=== PATIENT | female | born 1950 | race Caucasian/White ===

== ENCOUNTER → 2018-04-22 11:10 | Outpatient (CLI) | payer MEDICARE, OTHER, SELFPAY ==
--- NOTE | 2018-04-22 11:26 | XR_ITS ---
XR chest 2V HISTORY: Cough and congestion ITS.REASON: PNEUMONIA ORDERING PHYSICIAN: Shy Augustin MD PATIENT AGE: 67 years COMPARISON: None FINDINGS: There is a 2.9 x 2.5 cm ill-defined nodule within the right apex. Along the inferior margin of this nodule is some increased linear density. The remaining lungs are clear. Unremarkable cardiovascular structures. No acute bony anomalies. IMPRESSION: 2.9 cm right upper lobe nodule suspicious for malignancy. There is inferior linear density associated with this nodule which may related to inferior extension. Chest CT with contrast recommended for further evaluation
== END ==
PROVIDERS: PCP Family Medicine; Visit Provider Family Medicine
DX: J18.1 Lobar pneumonia, unspecified organism (principal)
CPT/HCPCS: 71046

== ENCOUNTER → 2018-04-28 12:46 | Outpatient (CLI) | payer MEDICARE, OTHER, SELFPAY ==
[2018-04-28 13:11] LABS: Blood Urea Nitrogen 16 mg/dL (7-18); Creatinine,Serum 0.83 mg/dL (0.55-1.02); Estimated Glomerular Filt Rate 69 ml/min (>60); GFR (African American) 83 ML/MIN (>60)
--- NOTE | 2018-04-28 13:31 | CT_ITS ---
CT chest wo/w con HISTORY: Right lung mass, cough and congestion ITS.REASON: RT LUNG NODULE ORDERING PHYSICIAN: Abdiaziz Drake MD PATIENT AGE: 67 years COMPARISON: 04/22/2018 Technique: Axial images obtained with sagittal and coronal reformats. All CT scans at the facility use one or more dose reduction, viz: automated exposure control, ma/kV adjustment per patient size (including targeted exams where dose is matched to indication, i.e. head), or iterative reconstruction technique. FINDINGS: No mediastinal or hilar mass or adenopathy is evident. Normal heart size. No evidence of pericardial effusion. The right lobe of the thyroid gland is somewhat enlarged posteriorly and medially There is a 2.4 x 2.7 x 2.6 cm right upper lobe mass. This is in the right apex anteriorly with extension to the chest wall. This is noncalcified. There are some peripheral air bronchograms adjacent to this lesion. This corresponds to the abnormality noted on the radiograph. Linear density extends from the superior hilum to this region. This is suspicious for neoplasm with some surrounding postobstructive changes. There is no underlying rib destruction. Remaining lungs are clear. No effusions. There is a 9 mm nodular density within the medial aspect of the right breast. Mammography suggested for further evaluation. No bony destructive process evident. Upper abdominal images are unremarkable. IMPRESSION: 2.7 cm right upper lobe mass suspicious for neoplasm. There are some surrounding inflammatory changes adjacent to this lesion with some air bronchograms. Dense consolidation within the included in the differential diagnosis. This is not amenable to percutaneous biopsy due to the location and overlying osseous structures. Bronchoscopy is suggested for further evaluation.
--- NOTE | 2018-04-28 13:55 | HMH.ITSHM ---
prednisone dulers benadryl guafensin/codine
== END ==
PROVIDERS: PCP Family Medicine; Visit Provider Family Medicine
DX: R91.1 Solitary pulmonary nodule (principal)
CPT/HCPCS: 36415; 71270; 82565; 84520; Q9967

== ENCOUNTER 2022-06-08 11:10 | Emergency (ER) | payer MEDICARE, BC, SELFPAY ==
[2022-06-08] VITALS (12 sets, daily range): BP systolic 106–144; BP diastolic 43–76; PULSE 138–163; RESP 24–32; TEMP 36.4–36.7; O2SAT 71–100; BMI 24.1
--- NOTE | 2022-06-08 11:34 | XR_ITS ---
PROCEDURE INFORMATION: Exam: XR Chest Exam date and time: 06/08/2022 12:39 PM Age: 72 years old Clinical indication: Shortness of breath; Additional info: SOA TECHNIQUE: Imaging protocol: Radiologic exam of the chest. Views: 1 view. COMPARISON: CHESTWW CT chest wo/w con 04/28/2018 1:38 PM FINDINGS: Lungs: Postsurgical changes of the right lung. There is right middle lobe atelectasis. Pleural spaces: Right pleural thickening. No pneumothorax. Heart/Mediastinum: Unremarkable. No cardiomegaly. Bones/joints: Unremarkable. IMPRESSION: Postsurgical changes of the right lung. There is right middle lobe atelectasis.
--- NOTE | 2022-06-08 11:37 | PC.NURSE ---
SUSHILA WHITE at
--- NOTE | 2022-06-08 11:40 | CT_ITS ---
PROCEDURE INFORMATION: Exam: CTA Chest With Contrast Exam date and time: 06/08/2022 1:15 PM Age: 72 years old Clinical indication: Shortness of breath and tachypnea; Additional info: huber ZAMARRIPA, h/o lung cancer TECHNIQUE: Imaging protocol: Computed tomographic angiography of the chest with contrast. 3D rendering (Not supervised by radiologist): MIP and/or 3D reconstructed images were created by the technologist. Radiation optimization: All CT scans at this facility use at least one of these dose optimization techniques: automated exposure control; mA and/or kV adjustment per patient size (includes targeted exams where dose is matched to clinical indication); or iterative reconstruction. Contrast material: ISOVUE; Contrast volume: 70 ml; Contrast route: INTRAVENOUS (IV); COMPARISON: CHESTWW CT chest wo/w con 04/28/2018 1:38 PM FINDINGS: Pulmonary arteries: Positive for pulmonary embolism involving the left main pulmonary artery with small saddle component extending into the proximal right main pulmonary artery. Pulmonary emboli are also seen extending into the left upper and lower lobar pulmonary arteries and segmental branches. Aorta: Unremarkable. No aortic aneurysm. No aortic dissection. Lungs: Postsurgical changes in the right lung. There is complete atelectasis of the right middle lobe. Calcified right lower lobe granuloma. Pleural spaces: Unremarkable. No pneumothorax. No pleural effusion. Heart: Mild cardiomegaly. Heart RV/LV ratio: The RV to LV ratio is mildly elevated at 1.1. Lymph nodes: Unremarkable. No enlarged lymph nodes. Gallbladder and bile ducts: Cholecystectomy. Bones/joints: Unremarkable. No acute fracture. Soft tissues: Unremarkable. IMPRESSION: 1. Positive for pulmonary embolism involving the left main pulmonary artery with small saddle component extending into the proximal right main pulmonary artery. Pulmonary emboli are also seen extending into the left upper and lower lobar pulmonary arteries and segmental branches. 2. Complete atelectasis of the right middle lobe. THIS REPORT CONTAINS FINDINGS THAT MAY BE CRITICAL TO PATIENT CARE. The findings were verbally communicated via telephone conference with Cassia Rios at 12:40 PM EST on 06/08/2022. The findings were acknowledged and understood.
[2022-06-08 11:51] LABS: Basophils # 0.1 K/mm3 (0-0.2); Basophils % 0.4 % (0.1-2.0); Eosinophils % 0.1 % (0.1-12.0); Hematocrit 37.1 % (37.0-47.0); Hemoglobin 11.4 g/dL (12.2-16.2); Lymphocytes # 1.5 K/mm3 (0.7-4.5); Lymphocytes % 11.3 % (10-50); Mean Corpuscular HGB Conc 30.8 g/dL (31.8-35.4); Mean Corpuscular Hemoglobin 30.4 pg (27.0-31.2); Mean Corpuscular Volume 98.6 fl (81-99); Mean Platelet Volume 9.1 fl (7.4-10.4); Monocytes # 0.7 K/mm3 (0.1-1.0); Monocytes % 5.2 % (1.7-9.3); Neutrophils # 11.3 K/mm3 (1.8-7.8); Neutrophils % 83.1 % (37.0-80.0); Platelet Count 280 K/mm3 (142-424); Red Blood Count 3.76 M/mm3 (4.20-5.40); Red Cell Distribution Width 14.4 % (11.5-17.5); White Blood Count 13.6 K/mm3 (4.8-10.8)
--- NOTE | 2022-06-08 11:51 | ECG_ITS ---
APPROVED REPORT Exam: Resting ECG HR:145 bpm ECG Measurements Heart Rate 145 AXES SC 146 P 50 QRSd 63 QRS -58 QT 281 T 43 QTc 365 Conclusion SINUS TACHYCARDIA, POSSIBLE ATRIAL FLUTTER INFERIOR MYOCARDIAL INFARCTION , PROBABLY OLD [40+ ms Q WAVE AND/OR ST/T ABNORMALITY IN II/aVF] ANTEROLATERAL MYOCARDIAL INFARCTION , PROBABLY OLD [40+ ms Q WAVE IN I/aVL/V3-V6] ABNORMAL ECG UNCONFIRMED REPORT Electronically signed by : Abdiaziz Diana MD 06/08/2022 17:12:18
[2022-06-08 11:55] LABS: Anion Gap 25.4 mEq/L (5-15); Blood Urea Nitrogen 23 mg/dl (7-17); Carbon Dioxide 19 mmol/L (22.0-30.0); Chloride 98 mmol/L (98-107); Creatinine Clearance Estimated 27 mL/min (50-200); Estimated Glomerular Filt Rate 28 ml/min (>60); GFR (African American) 34 ML/MIN (>60); Glucose 170 mg/dl (74-100); Potassium 4.4 mmoL/L (3.5-5.1); Sodium 138 mmol/L (136-145)
[2022-06-08 11:56] LABS: Lactic Acid 3.3 mmol/L (0.7-2.1)
[2022-06-08 12:04] LABS: NT Pro Brain Natriuretic Pep. 495 pg/mL (0-125)
[2022-06-08 12:08] LABS: Troponin I 2.05 ng/ml (0.00-0.034)
--- NOTE | 2022-06-08 12:16 | PC.NURSE ---
pt to ct
--- NOTE | 2022-06-08 12:18 | HMH.EDGENADL ---
Discharge Plan Disposition Patient Disposition: Xfer Short-Term Hosp Condition: Fair Prescriptions Prescriptions: No Action Tagrisso 80 mg tablet 80 mg PO DAILY Referrals Follow up/Referrals: Celina Cole APRN [Primary Care Provider] - See instructions Clinical Impressions Clinical Impression: Acute saddle pulmonary embolism, Acute hypoxemic respiratory failure, Elevated troponin I level Stand Alone Forms Stand Alone Forms: Transfer Record - ED Discharge ED Provider: Cassia Rios General Adult HPI General Chief complaint: Shortness of Breath/Dyspnea Stated complaint: SOA Time Seen by Provider: 06/08/22 11:39 Mode of Arrival: Wheelchair Source of Information: Patient Limitations: No Limitations Description of Symptoms (Recalled from ER Triage Doc. by RN): Pt reports SOA x2 days, worsening today. Pt reports has had cough, fever at home intermittent x2 days. Rapid respirations noted, cyanotic nail bed upon arrival. SaO2 71% on RA upon arrival. Pt reports hx of lung CA, hx of R lung resection in 2018. Pt reports is on a daily chemo pill since 2020 History of Present Illness HPI narrative: This patient is a 72-year-old female with a history of lung cancer on chemotherapy presented to the emergency department for evaluation of shortness of breath. This is been worsening over the last 2 days. She has a history of lung resection in 2018. She states that she has had increasing cough, dyspnea on exertion, and very poor oral intake over the last several days. She said chills, but no true fevers. She also had nausea with an episode of emesis this morning. She is had no abdominal pain or changes in bowel movements. Nothing seems to make her symptoms better or worse. No history of blood clots, no recent lower extremity swelling. Patient arrives in respiratory distress, so most of the history is obtained from her . Related Data Home Medications Medication Instructions Recorded Confirmed osimertinib 80 mg tablet (Tagrisso) 80 mg PO DAILY chemotherapy 06/08/22 06/08/22 Allergies Allergy/AdvReac Type Severity Reaction Status Date / Time Penicillins Allergy Unknown Verified 06/08/22 12:40 allergy reaction Sulfa (Sulfonamide Allergy Unknown Verified 06/08/22 12:40 Antibiotics) allergy reaction PFSH PFSH Social History Smoking Status: Unknown if ever smoked alcohol intake: never current occupational status: unemployed and retired Travel in the last 8 weeks: None ROS Obtained: Yes All systems reviewed & no additional complaints except as documented 14 point review of systems obtained and negative except as mentioned in HPI. Physical Exam General General appearance: alert and in distress (In respiratory distress) Head Head exam: atraumatic and normocephalic Eye Eye exam: Present normal appearance, PERRL and EOMI ENT ENT exam: Present mucous membranes dry Neck Neck exam: Present normal inspection, full ROM and trachea midline Chest Chest inspection: Present normal inspection and symmetric chest wall rise; Absent tenderness Respiratory Respiratory exam: Present respiratory distress, wheezes, accessory muscle use and other (Tachypneic with retractions and accessory muscle use. Diffuse wheezes and rhonchi.) Cardiovascular Cardiovascular exam: Present normal rhythm and tachycardia Abdominal Exam Abdominal exam: Present soft; Absent distention, tenderness or guarding Back Exam Back exam: Present normal inspection and full ROM Neurological Exam Neurological exam: Present alert, oriented X3 and CN II-XII intact; Absent motor sensory deficit Psychiatric Psychiatric exam: Present normal affect Skin Skin exam: Present warm and dry Medical Decision Making Medical Records Medical records reviewed: Yes I reviewed the patient's medical records. Marcus Inquiry Pt receiving controlled substance: No Vital Signs:
--- NOTE | 2022-06-08 12:33 | PC.NURSE ---
pt return from CT
--- NOTE | 2022-06-08 12:38 | PC.NURSE ---
DR CARLISLE SPEAKING WITH HAYESAD
--- NOTE | 2022-06-08 12:39 | PC.NURSE ---
DR CARLISLE SPEAKING WITH DR HOGAN
--- NOTE | 2022-06-08 12:40 | PC.NURSE ---
pt on O2 @ 5L per NC at this time
--- NOTE | 2022-06-08 12:40 | PC.NURSE ---
Dr florence strange MD speaking with him.
--- NOTE | 2022-06-08 12:43 | PC.NURSE ---
SUSHILA WHITE at discussing POC and test results for pt at this time
--- NOTE | 2022-06-08 12:48 | PC.NURSE ---
ER speaking with pharmacy regarding tPA
--- NOTE | 2022-06-08 12:48 | PC.NURSE ---
notified RT of ER MD requesting pt be placed on vapo therm
--- NOTE | 2022-06-08 12:50 | PC.NURSE ---
Addendum entered by Radha Singh RN 06/08/22 13:06: hospitalist declined admission Original Note: ER MD speaking with hospitalist.
[2022-06-08 13:01] LABS: Activated Partial Thrombo Time 31.9 seconds (22.8-30.6); INR 1.04 (0.9-1.1); Prothrombin Time 11.2 seconds (10.1-12.5)
--- NOTE | 2022-06-08 13:06 | PC.NURSE ---
ER spoke with ana in pharmacy r/t tPA dosing again after researching dose. Dr. Strickland had recommended 100mg of tPA. After speaking with Ana in pharmacy ER states dosing is 100 mg of tPA IV infusion over 2 hours. ER states was changing order in computer.
--- NOTE | 2022-06-08 13:17 | PC.NURSE ---
Placed call to [facility] for transfer, images powershared and waiting for them to see them and call back.
--- NOTE | 2022-06-08 13:20 | PC.NURSE ---
pt requests [facility], declined per pt
--- NOTE | 2022-06-08 13:21 | PC.NURSE ---
Dr Rios speaking with [facility]
--- NOTE | 2022-06-08 13:24 | PC.NURSE ---
speaking with [facility] for transfer for ICU bed
[2022-06-08 13:28] LABS: Influenza A, PCR Not Detected (NotDetected); Influenza B, PCR Not Detected (NotDetected)
--- NOTE | 2022-06-08 13:29 | PC.NURSE ---
at going over consent form for tPA with pt and pts , pt stated had questions. Notified ER MD SUSHILA WHITE at at this time
--- NOTE | 2022-06-08 13:40 | PC.NURSE ---
caroline at [facility] dept called requesting face sheet on pt, reports will be calling back soon with bed assignment
--- NOTE | 2022-06-08 13:47 | PC.NURSE ---
Dr Rios spoke with Dr Britt, accepting pt to ICU, calling status of helicopter
[2022-06-08 13:50] LABS: Coronavirus 19, PCR Detected (NotDetected)
--- NOTE | 2022-06-08 13:54 | PC.NURSE ---
[facility] HAS ACCEPTED THE FLIGHT WILL BE HERE IN APPROX 35 MIN
--- NOTE | 2022-06-08 13:59 | PC.NURSE ---
1336- vapotherm increased to 60% on 20L per RT per ER MD request r/t SaO2 88%
--- NOTE | 2022-06-08 13:59 | PC.NURSE ---
CB advised of pt covid positive results and they advised, that was fine and she would be in the right dept for it.
--- NOTE | 2022-06-08 14:04 | PC.NURSE ---
checked on pt at this time, pt sitting up in bed talking with her . States no needs at this time, UPdated pt we are waiting on bed assignment from [facility].
--- NOTE | 2022-06-08 14:16 | PC.NURSE ---
[facility] HAS HAD TO DECLINE FOR [facility] , THEY CALLED [facility] THEY HAD TO DECLINE TO
--- NOTE | 2022-06-08 14:21 | PC.NURSE ---
report called to ELDA Earl at [facility] at this time. [facility] pt is assigned to [address] for EMS to go to the [place] upon arrival. [facility] notified of need for transport as [facility] declined.
[2022-06-08 14:42] LABS: Microscopic, Urine URINE MICROSCOPIC (MICROSCOPIC)
--- NOTE | 2022-06-08 15:15 | PC.NURSE ---
report given to [facility] staff at [facility]
--- NOTE | 2022-06-08 15:40 | PC.NURSE ---
notified caroline in acc at [facility] pt is in route with ems
[2022-06-08 15:44] LABS: Reflex Lactic Add Lactic Reflex
[2022-06-08 15:59] LABS: Appearance,Urine CLEAR (Clear); Bilirubin,Urine Negative (Negative); Blood, Urine TRACE-I (Negative); Color,Urine YELLOW (Yellow); Glucose,Urine (UA) Negative (Negative); Ketones,Urine Negative (Negative); Leukocyte Esterase,Urine Negative (Negative); Nitrate,Urine Negative (Negative); PH,Urine 5.5 (5.0-8.5); Protein,Urine 1+ (Negative); Urobilinogen,Urine 0.2 EU/dl (0.2)
[2022-06-08 16:19] LABS: RBC,Urine Occasional #/hpf (0-3); WBC,Urine Occasional #/hpf (0-3)
[2022-06-08 16:20] LABS: Bacteria,Urine Trace /lpf
== END 2022-06-08 15:15 | disposition short-term general hospital (02) ==
PROVIDERS: Emergency Provider Emergency Medicine; PCP Nurse Practitioner
DX: U07.1 COVID-19 (principal); J96.01 Acute respiratory failure with hypoxia; I26.92 Saddle embolus of pulmonary artery without acute cor pulmonale; R77.8 Other specified abnormalities of plasma proteins; Z88.0 Allergy status to penicillin; Z88.2 Allergy status to sulfonamides
CPT/HCPCS: 51702; 71045; 71275; 80048; 81001; 83605; 83880; 84484; 85025; 85610; 85730; 87040; 93005; 96365; 96366; 96367; 99291; C9803; J2997; Q9967; U0003; U0005

== ENCOUNTER → 2022-06-30 12:04 | Outpatient (CLI) | payer MEDICARE, BC, SELFPAY ==
[2022-06-30 12:44] LABS: Basophils % 0.6 % (0.1-2.0); Eosinophils # 0.1 K/mm3 (0.0-0.4); Eosinophils % 1.5 % (0.1-12.0); Hematocrit 34.1 % (37.0-47.0); Hemoglobin 10.7 g/dL (12.2-16.2); Lymphocytes # 0.9 K/mm3 (0.7-4.5); Mean Corpuscular HGB Conc 31.4 g/dL (31.8-35.4); Mean Corpuscular Hemoglobin 30.2 pg (27.0-31.2); Mean Corpuscular Volume 96.1 fl (81-99); Mean Platelet Volume 8.4 fl (7.4-10.4); Monocytes # 0.2 K/mm3 (0.1-1.0); Monocytes % 4.8 % (1.7-9.3); Neutrophils # 2.5 K/mm3 (1.8-7.8); Neutrophils % 69.1 % (37.0-80.0); Platelet Count 376 K/mm3 (142-424); Red Blood Count 3.55 M/mm3 (4.20-5.40); Red Cell Distribution Width 14.9 % (11.5-17.5); White Blood Count 3.6 K/mm3 (4.8-10.8)
[2022-06-30 12:49] LABS: D-Dimer 0.77 ug/mL (0.0-0.5)
[2022-06-30 14:16] LABS: Alanine Aminotransferase 13 U/L (12-78); Albumin Level 4.3 g/dl (3.5-5.0); Albumin/Globulin Ratio 1.9 (1.1-1.8); Alkaline Phosphatase 89 U/L (38-126); Aspartate Amino Transferase 22 U/L (14-36); Bilirubin,Total 0.4 mg/dl (0.2-1.3); Blood Urea Nitrogen 16 mg/dl (7-17); Carbon Dioxide 19 mmol/L (22.0-30.0); Estimated Glomerular Filt Rate 30 ml/min (>60); GFR (African American) 36 ML/MIN (>60); Globulin 2.3 g/dL (1.3-3.2); Glucose 95 mg/dl (74-100); Potassium 3.7 mmoL/L (3.5-5.1); Sodium 134 mmol/L (136-145); Total Protein,Serum 6.6 g/dl (6.3-8.2)
[2022-06-30 15:06] LABS: Anion Gap 13.7 mEq/L (5-15); Chloride 105 mmol/L (98-107)
== END ==
PROVIDERS: PCP Internal Medicine Hematology & Oncology; Visit Provider Internal Medicine Pulmonary Disease
DX: J45.909 Unspecified asthma, uncomplicated (principal); J84.9 Interstitial pulmonary disease, unspecified
CPT/HCPCS: 36415; 80053; 85025; 85378

== ENCOUNTER → 2022-08-28 09:47 | Outpatient (CLI) | payer MEDICARE, BC, SELFPAY ==
[2022-08-28 10:40] VITALS: PULSE 78; PULSE 86
== END ==
PROVIDERS: PCP Internal Medicine Hematology & Oncology; Visit Provider Internal Medicine Pulmonary Disease
DX: R06.02 Shortness of breath (principal)
CPT/HCPCS: 94060; 94618; 94640; 94727; 94729

== ENCOUNTER → 2022-11-13 12:29 | Outpatient (CLI) | payer MEDICARE, BC, SELFPAY ==
--- NOTE | 2022-11-13 12:44 | XR_ITS ---
FINAL REPORT CLINICAL HISTORY: RT KNEE PAIN,EFFUSION FINDINGS: Right knee Three views were obtained. There is no acute fracture or dislocation. There are moderate and severe degenerative changes. Moderate joint effusion is identified. The bones are osteopenic. IMPRESSION: Degenerative changes as above with moderate joint effusion. Reviewed, Interpreted and Dictated by Danish Solomon III, MD Transcribed by Tami Haley Authenticated and [facility]
== END ==
PROVIDERS: PCP Nurse Practitioner Family; Visit Provider Nurse Practitioner Family
DX: M25.561 Pain in right knee (principal); M25.461 Effusion, right knee
CPT/HCPCS: 73562

== ENCOUNTER 2023-11-24 13:26 | Outpatient (CLI) | payer MEDICARE, BC, SELFPAY ==
[2023-11-24 13:40] VITALS: BP 92/56; PULSE 101; RESP 18; TEMP 36.8; O2SAT 99
[2023-11-24] MEDS: 0.9 % SODIUM CHLORIDE 1000ML 1,000 ML 500 ML IV (13:45)
[2023-11-24 14:40] VITALS: BP 92/52; PULSE 88
[2023-11-24 15:40] VITALS: BP 107/61; PULSE 91
== END 2023-11-24 15:54 | disposition home or self-care (01) ==
LOC: INF 13:27
PROVIDERS: PCP Family Medicine; Visit Provider Internal Medicine Hematology & Oncology
DX: E86.0 Dehydration (principal); C34.91 Malignant neoplasm of unspecified part of right bronchus or lung
CPT/HCPCS: 96360; 96361

== ENCOUNTER 2023-12-08 11:51 | Outpatient (CLI) | payer MEDICARE, BC, SELFPAY ==
[2023-12-08 12:11] VITALS: BP 97/52; PULSE 88; RESP 20; TEMP 36.6; O2SAT 98
[2023-12-08] MEDS: SODIUM CHLORIDE 0.9% 10ML FLUSH SYRINGE 10 ML IV (12:11)
[2023-12-08] MEDS: 0.9 % SODIUM CHLORIDE 1000ML 1,000 ML 999 ML IV (12:12)
[2023-12-08 13:11] VITALS: BP 120/61; PULSE 92; RESP 20; O2SAT 98
== END 2023-12-08 13:15 | disposition home or self-care (01) ==
LOC: INF 11:52
PROVIDERS: PCP Family Medicine
DX: C34.11 Malignant neoplasm of upper lobe, right bronchus or lung (principal); E86.0 Dehydration
CPT/HCPCS: 96360

== ENCOUNTER 2023-12-11 08:47 | Outpatient (CLI) | payer MEDICARE, BC, SELFPAY ==
[2023-12-11 09:00] VITALS: BP 90/47; PULSE 94; RESP 18; TEMP 36.8; O2SAT 97
[2023-12-11] MEDS: 0.9 % SODIUM CHLORIDE 1000ML 1,000 ML 999 ML IV (09:00)
[2023-12-11 10:00] VITALS: BP 117/68; PULSE 88
== END 2023-12-11 10:10 | disposition home or self-care (01) ==
LOC: INF 08:47
PROVIDERS: PCP Family Medicine; Visit Provider Internal Medicine Hematology & Oncology
DX: C34.11 Malignant neoplasm of upper lobe, right bronchus or lung (principal); E86.0 Dehydration
CPT/HCPCS: 96360

== ENCOUNTER 2023-12-14 10:42 | Outpatient (CLI) | payer MEDICARE, BC, SELFPAY ==
[2023-12-14 11:00] VITALS: BP 99/59; PULSE 98; RESP 18; TEMP 36.7; O2SAT 98
[2023-12-14] MEDS: 0.9 % SODIUM CHLORIDE 1000ML 1,000 ML 999 ML IV (11:00)
[2023-12-14 12:00] VITALS: BP 101/56; PULSE 102
== END 2023-12-14 23:59 | disposition home or self-care (01) ==
LOC: INF 10:43
PROVIDERS: PCP Family Medicine; Visit Provider Internal Medicine Hematology & Oncology
DX: C34.11 Malignant neoplasm of upper lobe, right bronchus or lung (principal); E86.0 Dehydration
CPT/HCPCS: 96360

== ENCOUNTER 2023-12-23 08:49 | Outpatient (CLI) | payer MEDICARE, BC, SELFPAY ==
[2023-12-23 09:05] VITALS: BP 116/69; PULSE 102; RESP 16; TEMP 36.5; O2SAT 97
[2023-12-23] MEDS: SODIUM CHLORIDE 0.9% 10ML FLUSH SYRINGE 10 ML IV (09:05)
[2023-12-23] MEDS: 0.9 % SODIUM CHLORIDE 1000ML 1,000 ML 999 ML IV (09:05)
[2023-12-23 10:05] VITALS: BP 129/72; PULSE 94; RESP 18; TEMP 36.5; O2SAT 97
== END 2023-12-23 10:10 | disposition home or self-care (01) ==
LOC: INF 08:50
PROVIDERS: PCP Family Medicine; Visit Provider Internal Medicine Hematology & Oncology
DX: E86.0 Dehydration (principal); C34.91 Malignant neoplasm of unspecified part of right bronchus or lung
CPT/HCPCS: 96360

== ENCOUNTER 2023-12-25 08:51 | Outpatient (CLI) | payer MEDICARE, BC, SELFPAY ==
[2023-12-25] MEDS: SODIUM CHLORIDE 0.9% 10ML FLUSH SYRINGE 10 ML IV (09:05)
[2023-12-25] MEDS: 0.9 % SODIUM CHLORIDE 1000ML 1,000 ML 999 ML IV (09:10)
[2023-12-25 09:14] VITALS: BP 98/70; PULSE 125; RESP 16; TEMP 36.7; O2SAT 98
[2023-12-25 10:07] VITALS: BP 105/68; PULSE 112; RESP 16; O2SAT 98
== END 2023-12-25 10:10 | disposition home or self-care (01) ==
LOC: INF 08:52
PROVIDERS: PCP Family Medicine; Visit Provider Internal Medicine Hematology & Oncology
DX: C34.11 Malignant neoplasm of upper lobe, right bronchus or lung (principal); E86.0 Dehydration
CPT/HCPCS: 96360

== ENCOUNTER 2023-12-28 08:58 | Outpatient (CLI) | payer MEDICARE, BC, SELFPAY ==
[2023-12-28 09:06] VITALS: BP 93/56; PULSE 110; RESP 20; TEMP 36.4; O2SAT 95
[2023-12-28] MEDS: 0.9 % SODIUM CHLORIDE 1000ML 1,000 ML 999 ML IV (09:06)
[2023-12-28] MEDS: SODIUM CHLORIDE 0.9% 10ML FLUSH SYRINGE 10 ML IV (09:06)
[2023-12-28 10:27] VITALS: BP 102/60; PULSE 109; RESP 20; O2SAT 95
== END 2023-12-28 10:31 | disposition home or self-care (01) ==
LOC: INF 08:59
PROVIDERS: PCP Family Medicine; Visit Provider Internal Medicine Hematology & Oncology
DX: C34.11 Malignant neoplasm of upper lobe, right bronchus or lung (principal)
CPT/HCPCS: 96360

== ENCOUNTER 2023-12-30 08:56 | Outpatient (CLI) | payer MEDICARE, BC, SELFPAY ==
[2023-12-30 09:10] VITALS: BP 113/64; PULSE 72; RESP 18; O2SAT 97
[2023-12-30] MEDS: 0.9 % SODIUM CHLORIDE 1000ML 1,000 ML 999 ML IV (09:10)
[2023-12-30 10:10] VITALS: BP 121/72; PULSE 72
== END 2023-12-30 10:20 | disposition home or self-care (01) ==
LOC: INF 08:57
PROVIDERS: PCP Family Medicine; Visit Provider Internal Medicine Hematology & Oncology
DX: C34.11 Malignant neoplasm of upper lobe, right bronchus or lung (principal)
CPT/HCPCS: 96360

== ENCOUNTER 2024-01-11 14:20 | Outpatient (CLI) | payer MEDICARE, BC, SELFPAY ==
[2024-01-11 14:35] VITALS: BP 102/52; PULSE 116; RESP 18; TEMP 37.3; O2SAT 98
[2024-01-11] MEDS: 0.9 % SODIUM CHLORIDE 1000ML 1,000 ML 999 ML IV (14:35)
[2024-01-11 15:35] VITALS: BP 111/63; PULSE 105; RESP 18; TEMP 36.8
== END 2024-01-11 15:50 | disposition home or self-care (01) ==
LOC: INF 14:22
PROVIDERS: PCP Family Medicine
DX: C34.11 Malignant neoplasm of upper lobe, right bronchus or lung (principal)
CPT/HCPCS: 96360

== ENCOUNTER 2024-01-13 09:58 | Outpatient (CLI) | payer MEDICARE, BC, SELFPAY ==
[2024-01-13] MEDS: 0.9 % SODIUM CHLORIDE 1000ML 1,000 ML 999 ML IV (10:30)
[2024-01-13] MEDS: SODIUM CHLORIDE 0.9% 10ML FLUSH SYRINGE 10 ML IV (10:30)
[2024-01-13 10:35] VITALS: BP 99/74; PULSE 71; RESP 18; TEMP 37.2; O2SAT 98
[2024-01-13 11:35] VITALS: BP 101/64; PULSE 65
== END 2024-01-13 11:40 | disposition home or self-care (01) ==
LOC: INF 09:59
PROVIDERS: PCP Family Medicine; Visit Provider Family Medicine
DX: C34.11 Malignant neoplasm of upper lobe, right bronchus or lung (principal)
CPT/HCPCS: 96360

== ENCOUNTER 2024-01-25 13:58 | Outpatient (CLI) | payer MEDICARE, BC, SELFPAY ==
[2024-01-25 14:21] VITALS: BP 92/58; PULSE 102; RESP 16; TEMP 36.3; O2SAT 99
[2024-01-25] MEDS: 0.9 % SODIUM CHLORIDE 1000ML 1,000 ML 999 ML IV (14:21)
[2024-01-25] MEDS: SODIUM CHLORIDE 0.9% 10ML FLUSH SYRINGE 10 ML IV (14:21)
[2024-01-25 15:21] VITALS: BP 102/59; PULSE 92; RESP 16; TEMP 36.4; O2SAT 100
== END 2024-01-25 15:25 | disposition home or self-care (01) ==
LOC: INF 13:59
PROVIDERS: PCP Family Medicine; Visit Provider Family Medicine
DX: C34.11 Malignant neoplasm of upper lobe, right bronchus or lung (principal)
CPT/HCPCS: 96360

== ENCOUNTER 2024-01-27 10:31 | Outpatient (CLI) | payer MEDICARE, BC, SELFPAY ==
[2024-01-27 10:55] VITALS: BP 84/56; PULSE 102; RESP 20; TEMP 36.7; O2SAT 98
[2024-01-27] MEDS: 0.9 % SODIUM CHLORIDE 1000ML 1,000 ML 999 ML IV (10:55)
[2024-01-27] MEDS: SODIUM CHLORIDE 0.9% 10ML FLUSH SYRINGE 10 ML IV (11:21)
[2024-01-27 11:57] VITALS: BP 111/63; PULSE 100; RESP 20; O2SAT 99
== END 2024-01-27 12:00 | disposition home or self-care (01) ==
LOC: INF 10:33
PROVIDERS: PCP Family Medicine; Visit Provider Internal Medicine Hematology & Oncology
DX: C34.11 Malignant neoplasm of upper lobe, right bronchus or lung (principal)
CPT/HCPCS: 96360

== ENCOUNTER 2024-02-02 10:49 | Outpatient (CLI) | payer MEDICARE, BC, SELFPAY ==
[2024-02-02] MEDS: SODIUM CHLORIDE 0.9% 10ML FLUSH SYRINGE 10 ML IV (11:00)
[2024-02-02] MEDS: 0.9 % SODIUM CHLORIDE 1000ML 1,000 ML 999 ML IV (11:04)
[2024-02-02 11:05] VITALS: BP 107/60; PULSE 95; RESP 18; TEMP 36.7; O2SAT 98
[2024-02-02 12:04] VITALS: BP 111/63; PULSE 89; RESP 16; TEMP 36.7; O2SAT 100
== END 2024-02-02 12:05 | disposition home or self-care (01) ==
LOC: INF 10:50
PROVIDERS: PCP Family Medicine; Visit Provider Internal Medicine Hematology & Oncology
DX: C34.11 Malignant neoplasm of upper lobe, right bronchus or lung (principal)
CPT/HCPCS: 96360

== ENCOUNTER 2024-02-04 10:27 | Outpatient (CLI) | payer MEDICARE, BC, SELFPAY ==
[2024-02-04 11:00] VITALS: BP 97/65; PULSE 107; RESP 16; TEMP 36.7; O2SAT 98
[2024-02-04 12:00] VITALS: BP 125/57; PULSE 95; RESP 16; TEMP 36.7; O2SAT 98
== END 2024-02-04 12:05 | disposition home or self-care (01) ==
LOC: INF 10:28
PROVIDERS: PCP Family Medicine; Visit Provider Internal Medicine Hematology & Oncology
DX: C34.11 Malignant neoplasm of upper lobe, right bronchus or lung (principal)
CPT/HCPCS: 96360

== ENCOUNTER 2024-02-10 11:01 | Outpatient (CLI) | payer MEDICARE, BC, SELFPAY ==
[2024-02-10 11:10] VITALS: BP 110/72; PULSE 70; RESP 16; O2SAT 98
[2024-02-10] MEDS: 0.9 % SODIUM CHLORIDE 1000ML 1,000 ML 900 ML IV (11:18)
== END 2024-02-10 12:26 | disposition home or self-care (01) ==
PROVIDERS: PCP Family Medicine; Visit Provider Internal Medicine Hematology & Oncology
DX: C34.11 Malignant neoplasm of upper lobe, right bronchus or lung (principal)
CPT/HCPCS: 96360

== ENCOUNTER 2024-02-15 09:51 | Outpatient (CLI) | payer MEDICARE, BC, SELFPAY ==
[2024-02-15 10:15] VITALS: BP 92/60; PULSE 92; RESP 16; TEMP 36.3; O2SAT 96
[2024-02-15] MEDS: 0.9 % SODIUM CHLORIDE 1000ML 1,000 ML 999 ML IV (10:15)
[2024-02-15 11:15] VITALS: BP 93/59; PULSE 88; RESP 16; TEMP 36.3; O2SAT 97
== END 2024-02-15 11:25 | disposition home or self-care (01) ==
LOC: INF 09:52
PROVIDERS: PCP Family Medicine; Visit Provider Internal Medicine Hematology & Oncology
DX: C34.11 Malignant neoplasm of upper lobe, right bronchus or lung (principal)
CPT/HCPCS: 96360

== ENCOUNTER 2024-02-18 09:51 | Outpatient (CLI) | payer MEDICARE, BC, SELFPAY ==
[2024-02-18 10:01] VITALS: BP 96/58; PULSE 64; RESP 18; TEMP 36.7; O2SAT 99
[2024-02-18] MEDS: 0.9 % SODIUM CHLORIDE 1000ML 1,000 ML 999 ML IV (10:01)
[2024-02-18 10:30] VITALS: BP 98/53; PULSE 69; RESP 18; O2SAT 98
[2024-02-18 11:24] VITALS: BP 124/75; PULSE 92; RESP 18; O2SAT 100
== END 2024-02-18 11:27 | disposition home or self-care (01) ==
LOC: INF 09:53
PROVIDERS: PCP Family Medicine; Visit Provider Internal Medicine Hematology & Oncology
DX: C34.11 Malignant neoplasm of upper lobe, right bronchus or lung (principal)
CPT/HCPCS: J7030; 96360

== ENCOUNTER 2024-02-23 10:03 | Outpatient (CLI) | payer MEDICARE, BC, SELFPAY ==
[2024-02-23 10:45] VITALS: BP 102/62; PULSE 89; RESP 16; TEMP 36.4; O2SAT 98
[2024-02-23] MEDS: 0.9 % SODIUM CHLORIDE 1000ML 1,000 ML 999 ML IV (10:45)
[2024-02-23 11:45] VITALS: BP 131/72; PULSE 95; RESP 18; TEMP 36.4; O2SAT 97
== END 2024-02-23 11:50 | disposition home or self-care (01) ==
LOC: INF 10:04
PROVIDERS: PCP Family Medicine; Visit Provider Internal Medicine Hematology & Oncology
DX: C34.11 Malignant neoplasm of upper lobe, right bronchus or lung (principal)
CPT/HCPCS: J7030; 96360

== ENCOUNTER 2024-02-29 09:50 | Outpatient (CLI) | payer MEDICARE, BC, SELFPAY ==
[2024-02-29 10:09] VITALS: BP 111/73; PULSE 97; RESP 18; TEMP 36.4; O2SAT 96
[2024-02-29] MEDS: 0.9 % SODIUM CHLORIDE 1000ML 1,000 ML 999 ML IV (10:09)
[2024-02-29 11:09] VITALS: BP 115/62; PULSE 94; RESP 16; TEMP 36.4; O2SAT 96
== END 2024-02-29 11:12 | disposition home or self-care (01) ==
LOC: INF 09:51
PROVIDERS: PCP Family Medicine; Visit Provider Internal Medicine Hematology & Oncology
DX: C34.11 Malignant neoplasm of upper lobe, right bronchus or lung (principal)
CPT/HCPCS: J7030; 96360

== ENCOUNTER 2024-03-02 09:41 | Outpatient (CLI) | payer MEDICARE, BC, SELFPAY ==
[2024-03-02 09:55] VITALS: BP 139/63; PULSE 101; RESP 18; O2SAT 100
[2024-03-02] MEDS: 0.9 % SODIUM CHLORIDE 1000ML 1,000 ML 999 ML IV (09:55)
[2024-03-02 11:00] VITALS: BP 137/74; PULSE 98; RESP 18; O2SAT 100
== END 2024-03-02 11:00 | disposition home or self-care (01) ==
LOC: INF 09:42
PROVIDERS: PCP Family Medicine; Visit Provider Internal Medicine Hematology & Oncology
DX: C34.11 Malignant neoplasm of upper lobe, right bronchus or lung (principal)
CPT/HCPCS: J7030; 96360

== ENCOUNTER 2024-03-16 09:05 | Outpatient (CLI) | payer MEDICARE, BC, SELFPAY ==
[2024-03-16 09:30] VITALS: BP 102/64; PULSE 93; RESP 16; O2SAT 99
[2024-03-16] MEDS: 0.9 % SODIUM CHLORIDE 1000ML 1,000 ML 999 ML IV (09:41)
[2024-03-16 10:30] VITALS: BP 111/54; PULSE 86; RESP 16; O2SAT 100
== END 2024-03-16 10:40 | disposition home or self-care (01) ==
LOC: INF 09:06
PROVIDERS: PCP Family Medicine; Visit Provider Internal Medicine Hematology & Oncology
DX: C34.11 Malignant neoplasm of upper lobe, right bronchus or lung (principal)
CPT/HCPCS: 96360; J7030

== ENCOUNTER 2024-03-21 08:41 | Outpatient (CLI) | payer MEDICARE, BC, SELFPAY ==
[2024-03-21 09:00] VITALS: BP 106/61; PULSE 96; RESP 18; O2SAT 97
[2024-03-21] MEDS: 0.9 % SODIUM CHLORIDE 1000ML 1,000 ML 999 ML IV (09:00)
[2024-03-21 10:10] VITALS: BP 110/65; PULSE 68
[2024-03-21] MEDS: SODIUM CHLORIDE 0.9% 10ML FLUSH SYRINGE 10 ML IV (10:10)
== END 2024-03-21 10:15 | disposition home or self-care (01) ==
LOC: INF 08:42
PROVIDERS: PCP Family Medicine; Visit Provider Internal Medicine Hematology & Oncology
DX: C34.11 Malignant neoplasm of upper lobe, right bronchus or lung (principal)
CPT/HCPCS: 96360; J1642; J7030

== ENCOUNTER 2024-03-29 10:22 | Outpatient (CLI) | payer MEDICARE, BC, SELFPAY ==
[2024-03-29 10:40] VITALS: BP 99/54; PULSE 94; RESP 16; TEMP 36.3; O2SAT 98
[2024-03-29] MEDS: 0.9 % SODIUM CHLORIDE 1000ML 1,000 ML 999 ML IV (10:40)
[2024-03-29 11:40] VITALS: BP 125/67; PULSE 85; RESP 16; TEMP 36.4; O2SAT 98
[2024-03-29] MEDS: SODIUM CHLORIDE 0.9% 10ML FLUSH SYRINGE 10 ML IV (11:42)
== END 2024-03-29 11:45 | disposition home or self-care (01) ==
LOC: INF 10:23
PROVIDERS: PCP Family Medicine; Visit Provider Internal Medicine Hematology & Oncology
DX: C34.11 Malignant neoplasm of upper lobe, right bronchus or lung (principal)
CPT/HCPCS: 96360; J1642; J7030

== ENCOUNTER 2024-04-07 10:27 | Outpatient (CLI) | payer MEDICARE, BC, SELFPAY ==
[2024-04-07 10:45] VITALS: BP 114/66; PULSE 101; RESP 18; O2SAT 100
[2024-04-07] MEDS: 0.9 % SODIUM CHLORIDE 1000ML 1,000 ML 999 ML IV (10:45)
[2024-04-07] MEDS: SODIUM CHLORIDE 0.9% 10ML FLUSH SYRINGE 10 ML IV (11:48)
[2024-04-07 11:50] VITALS: BP 106/58; PULSE 93; RESP 18; O2SAT 100
== END 2024-04-07 11:50 | disposition home or self-care (01) ==
LOC: INF 10:29
PROVIDERS: PCP Family Medicine; Visit Provider Internal Medicine Hematology & Oncology
DX: C34.11 Malignant neoplasm of upper lobe, right bronchus or lung (principal)
CPT/HCPCS: 96360; J1642; J7030

== ENCOUNTER 2024-04-12 11:00 | Outpatient (CLI) | payer MEDICARE, BC, SELFPAY ==
[2024-04-12] MEDS: 0.9 % SODIUM CHLORIDE 1000ML 1,000 ML 999 ML IV (11:18)
[2024-04-12 11:26] VITALS: BP 120/70; PULSE 72; RESP 16; TEMP 36.7; O2SAT 99
[2024-04-12 12:18] VITALS: BP 128/62; PULSE 85; RESP 16; TEMP 36.7; O2SAT 99
[2024-04-12] MEDS: SODIUM CHLORIDE 0.9% 10ML FLUSH SYRINGE 10 ML IV (12:19)
== END 2024-04-12 12:20 | disposition home or self-care (01) ==
LOC: INF 11:01
PROVIDERS: PCP Family Medicine; Visit Provider Internal Medicine Hematology & Oncology
DX: C34.11 Malignant neoplasm of upper lobe, right bronchus or lung (principal)
CPT/HCPCS: 96360; J1642; J7030

== ENCOUNTER 2024-04-20 11:27 | Outpatient (CLI) | payer MEDICARE, BC, SELFPAY ==
[2024-04-20 11:45] VITALS: BP 121/60; PULSE 99; RESP 20; TEMP 36.6; O2SAT 99
[2024-04-20] MEDS: 0.9 % SODIUM CHLORIDE 1000ML 1,000 ML 999 ML IV (11:57)
[2024-04-20] MEDS: SODIUM CHLORIDE 0.9% 10ML FLUSH SYRINGE 10 ML IV (11:58)
[2024-04-20 12:50] VITALS: BP 123/68; PULSE 95; RESP 20; O2SAT 98
== END 2024-04-20 12:50 | disposition home or self-care (01) ==
LOC: INF 11:30
PROVIDERS: PCP Family Medicine
DX: C34.11 Malignant neoplasm of upper lobe, right bronchus or lung (principal)
CPT/HCPCS: 96360; J1642; J7030

== ENCOUNTER 2024-04-25 08:52 | Outpatient (CLI) | payer MEDICARE, BC, SELFPAY ==
[2024-04-25 09:10] VITALS: BP 115/66; PULSE 102; RESP 16; TEMP 37; O2SAT 99
[2024-04-25] MEDS: 0.9 % SODIUM CHLORIDE 1000ML 1,000 ML 999 ML IV (09:10)
[2024-04-25] MEDS: SODIUM CHLORIDE 0.9% 10ML FLUSH SYRINGE 10 ML IV (10:10)
== END 2024-04-25 10:15 | disposition home or self-care (01) ==
LOC: INF 08:53
PROVIDERS: PCP Family Medicine; Visit Provider Internal Medicine Hematology & Oncology
DX: C34.11 Malignant neoplasm of upper lobe, right bronchus or lung (principal)
CPT/HCPCS: 96360; J1642; J7030

== ENCOUNTER 2024-04-28 09:40 | Outpatient (CLI) | payer MEDICARE, BC, SELFPAY ==
[2024-04-28 10:02] VITALS: BP 99/64; PULSE 97; RESP 18; TEMP 36.3; O2SAT 95
[2024-04-28 11:04] VITALS: BP 123/68; PULSE 88; RESP 16; TEMP 36.3; O2SAT 96
[2024-04-28] MEDS: SODIUM CHLORIDE 0.9% 10ML FLUSH SYRINGE 10 ML IV (11:04)
== END 2024-04-28 11:05 | disposition home or self-care (01) ==
LOC: INF 09:41
PROVIDERS: PCP Family Medicine; Visit Provider Internal Medicine Hematology & Oncology
DX: C34.11 Malignant neoplasm of upper lobe, right bronchus or lung (principal)
CPT/HCPCS: 96360; J1642

== ENCOUNTER 2024-05-18 10:40 | Outpatient (CLI) | payer MEDICARE, BC, SELFPAY ==
[2024-05-18 11:08] VITALS: BP 126/75; PULSE 91; RESP 16; TEMP 36.3; O2SAT 98
[2024-05-18] MEDS: 0.9 % SODIUM CHLORIDE 1000ML 1,000 ML 999 ML IV (11:08)
[2024-05-18] MEDS: SODIUM CHLORIDE 0.9% 10ML FLUSH SYRINGE 10 ML IV (11:18)
[2024-05-18 12:10] VITALS: BP 119/69; PULSE 98; RESP 16; O2SAT 98
== END 2024-05-18 12:10 | disposition home or self-care (01) ==
LOC: INF 10:41
PROVIDERS: PCP Family Medicine; Visit Provider Internal Medicine Hematology & Oncology
DX: C34.11 Malignant neoplasm of upper lobe, right bronchus or lung (principal)
CPT/HCPCS: 96360; J1642; J7030

== ENCOUNTER 2024-06-01 10:13 | Outpatient (CLI) | payer MEDICARE, BC, SELFPAY ==
[2024-06-01] MEDS: 0.9 % SODIUM CHLORIDE 1000ML 1,000 ML 999 ML IV (10:30)
[2024-06-01 10:40] VITALS: BP 95/46; PULSE 86; RESP 16; TEMP 36.4; O2SAT 96
[2024-06-01] MEDS: SODIUM CHLORIDE 0.9% 10ML FLUSH SYRINGE 10 ML IV (10:40)
[2024-06-01 11:45] VITALS: BP 101/48; PULSE 88; RESP 16; O2SAT 97
== END 2024-06-01 11:45 | disposition home or self-care (01) ==
LOC: INF 10:14
PROVIDERS: PCP Family Medicine; Visit Provider Internal Medicine Hematology & Oncology
DX: C34.11 Malignant neoplasm of upper lobe, right bronchus or lung (principal)
CPT/HCPCS: 96360; J1642; J7030

== ENCOUNTER 2024-08-02 23:07 | Inpatient (IN) | payer MEDICARE, BC, SELFPAY ==
[2024-08-02 23:07] VITALS: BP 86/56; PULSE 108; RESP 24; TEMP 34.7; O2SAT 89; BMI 15.5
--- NOTE | 2024-08-02 23:13 | ECG_ITS ---
APPROVED REPORT Exam: Resting ECG HR:117 bpm ECG Measurements Heart Rate 117 AXES KS 148 P -25 QRSd 75 QRS -68 QT 314 T 87 QTc 384 Conclusion SINUS TACHYCARDIA WITH FREQUENT VENTRICULAR PREMATURE COMPLEXES LEFT ATRIAL ENLARGEMENT [-0.15mV P-WAVE IN V1/V2] ANTERIOR MYOCARDIAL INFARCTION , PROBABLY RECENT [40+ ms Q WAVE AND/OR ST/T ABNORMALITY IN V3/V4] INFERIOR MYOCARDIAL INFARCTION , OF INDETERMINATE AGE [40+ ms Q WAVE AND/OR ST/T ABNORMALITY IN II/aVF] UNCONFIRMED REPORT Electronically signed by : ROXANNA VANG, 08/05/2024 05:40:18
--- NOTE | 2024-08-02 23:13 | XR_ITS ---
PROCEDURE INFORMATION: Exam: XR Chest Exam date and time: 08/02/2024 11:28 PM Age: 74 years old Clinical indication: Shortness of breath and other: Aspiration; Additional info: SOA, aspiration TECHNIQUE: Imaging protocol: Radiologic exam of the chest. Views: 1 view. COMPARISON: CT ANGIO CHEST PE PROTOCOL 06/08/2022 1:15 PM FINDINGS: Tubes, catheters and devices: A right internal jugular vein [id number] is noted with the catheter tip projecting over the mid superior vena cava. Lungs: There is diffuse opacification throughout the right hemithorax with minimal aeration involving the right upper lung zone. There is mild volume loss within the right hemithorax with slight shift of the trachea to the right. The left lung demonstrates diffusely nodular infiltrate. . Surgical clips and sutures are present within the right hilar region. Pleural spaces: Unremarkable. No pleural effusion. No pneumothorax. Heart/Mediastinum: The right heart border is obscured however the heart is not significantly enlarged. Vasculature: No significant pulmonary vascular engorgement on the left. Right pulmonary vessels are obscured. Bones/joints: Unremarkable. IMPRESSION: Near complete opacification of the right hemithorax. Surgical clips and sutures are noted in the right hilar region suggesting at least partial lung resection. Underlying mass, consolidation and/or pleural fluid are likely. Diffuse nodular infiltrates throughout the left lung which may represent diffuse metastatic disease or atypical infection/inflammation.
[2024-08-02 23:34] VITALS: BP 86/56; PULSE 109; RESP 23; O2SAT 86
--- NOTE | 2024-08-02 23:39 | HMH.EDGENADL ---
Discharge Plan Disposition Patient Disposition: Admitted Chief Complaint: Recheck/Abnormal Lab/Rx Clinical Impressions Clinical Impression: Respiratory failure, Acute aspiration pneumonitis, Septic shock Discharge ED Provider: Yemi Herrera Adult HPI General Chief complaint: Recheck/Abnormal Lab/Rx Stated complaint: SOA Time Seen by Provider: 08/02/24 23:10 Mode of Arrival: EMS Source of Information: EMS Limitations: Altered Mental Status Description of Symptoms (Recalled from ER Triage Doc. by RN): Pt to ED via [facility]. Family wanted her to be seen tonight because she got choked on an ensure earlier today, and has been gurgling since. Pt on NRB. History of Present Illness HPI narrative: 74-year-old female with history of of lung cancer s/p resection, previously on chemo that they discontinued back in May. She presents today because she likely aspirated. She was drinking her Ensure when she started coughing and would not stop. She has been gargling since then. She was hypoxic in the 60s and 70s when the fire department was there, she was in the 80s on nonrebreather with EMS. Patient is unable to provide any additional history. She is awake but not communicative. Female reports that she was doing a little better after the chemo stopped, but has not been eating or drinking any significant amount for weeks. Has had minimal urine output. She is on a blood thinner but is not on any other medications. She had a fall and struck her head within the last week or 2. Related Data Home Medications ?Medication ?Instructions ?Recorded ?Confirmed osimertinib 80 mg tablet (Tagrisso) 80 mg PO DAILY chemotherapy 06/08/22 06/01/24 apixaban 5 mg tablet (Eliquis) 5 mg PO BID 06/30/22 06/01/24 Previous Rx's ?Medication ?Instructions ?Recorded albuterol sulfate 90 mcg/actuation 2 inh inhalation QID PRN shortness 06/30/22 aerosol inhaler of breath or wheezing 90 days #8.5 grams fluticasone propionate 50 1 spray intranasal DAILY 90 days 06/30/22 mcg/actuation nasal #16 grams spray,suspension (Flonase Allergy Relief) Allergies Allergy/AdvReac Type Severity Reaction Status Date / Time Penicillins Allergy Unknown Verified 06/01/24 11:39 allergy reaction Sulfa (Sulfonamide Allergy Unknown Verified 06/01/24 11:39 Antibiotics) allergy reaction [facility] Disclaimer: The information contained in this section may have been updated after the patient was seen, as this information can be updated by other users. Medical History (Updated 08/03/24 @ 01:51 by Yemi Herrera MD) Pulmonary embolism DVT (deep venous thrombosis) Exposure to second hand smoke Family history of blood clots Family history of lung cancer Dyspnea on exertion Lung cancer Surgical History History of lung surgery Family History Other No significant family history Social History (Updated 06/01/24 @ 11:38 by Fei Monique, ELDA) Smoking Status: Unknown if ever smoked alcohol intake: never current occupational status: unemployed and retired Travel in the last 8 weeks: None Other Medical History Have you received the Pneumonia Vaccine: No ROS Obtained: Yes unobtainable due to mental condition Physical Exam General General appearance: in distress and cachectic Head Head exam: other (Sunken cheeks) Eye Eye exam: Present PERRL and EOMI ENT ENT exam: Present normal oropharynx and normal external ear exam Neck Neck exam: Present normal inspection and full ROM Chest Chest inspection: Present normal inspection and symmetric chest wall rise; Absent tenderness Respiratory Respiratory exam: Present respiratory distress and other (Rhonchi and crackles throughout all lung khanna) Cardiovascular Cardiovascular exam: Present normal rhythm and tachycardia Abdominal Exam Abdominal exam: Present soft; Absent distention, tenderness or guarding Extremities Exam Extremities exam: Present other; Absent tenderness Back Exam Back exam: Absent tenderness Neurological Exam Neurological exam: Present other (Awake, answers some yes or no questions, not very interactive. At baseline mental status per family) Psychiatric Psychiatric exam: Present flat affect Skin Skin exam: Present pallor Lymphatic Lymphatic Findings: no adenopathy Medical Decision Making Medical Records Medical records reviewed: Yes I reviewed the patient's medical records. Screening: Per USPSTF and CDC recommendations, given the prevalence of disease in our region, it is our hospital?s policy to screen for HIV and viral Hepatitis for all patients aged 18 and over and those with ongoing risk factors. Marcus Inquiry Pt receiving controlled substance: No Marcus was queried for this patient: No Vital Signs: 08/02/24 23:07 08/02/24 23:34 08/03/24 00:01 Temperature 94.5 F L Temperature Source Rectal Pulse Rate 109 H 101 H Pulse Rate [Apical] 108 H Respiratory Rate 24 23 19 Blood Pressure 86/56 L 101/56 L Blood Pressure [Right Arm] 86/56 L Blood Pressure Mean [Right Arm] 66 Blood Pressure Source [Right Arm] Automatic Cuff Blood Pressure Position [Right Arm] Sitting 02 Sat by Pulse Oximetry 89 L 86 L 97 Oxygen Delivery Method Non-Rebreather Oxygen Flow Rate (LPM) 15 08/03/24 00:30 08/03/24 01:00 08/03/24 01:29 Temperature Temperature Source Pulse Rate 100 H 91 H 87 Pulse Rate [Apical] Respiratory Rate 20 16 15 Blood Pressure 107/67 L 79/44 L 60/37 L Blood Pressure [Right Arm] Blood Pressure Mean [Right Arm] Blood Pressure Source [Right Arm] Blood Pressure Position [Right Arm] 02 Sat by Pulse Oximetry 90 L 94 L 95 Oxygen Delivery Method Oxygen Flow Rate (LPM) Lab Data Lab results reviewed: Yes I reviewed the patient's lab results. Lab Results 08/02/24 00:10: Urine Color Yellow, Urine Appearance Clear, Urine pH 6.0, Ur Specific [place] >= 1.030, Urine Protein Trace, Urine Glucose (UA) Negative, Urine Ketones Negative, Urine Blood Negative, Urine Nitrate Negative, Urine Bilirubin Negative, Urine Urobilinogen 0.2, Ur Leukocyte Esterase Negative, Urine RBC None, Urine WBC None, Ur Squamous Epith Cells Occasional, Urine Bacteria None 08/02/24 22:32: WBC 16.5 H, RBC 3.27 L, Hgb 10.3 L, Hct 34.5 L, MCV 105.5 H, MCH 31.5 H, MCHC 29.9 L, RDW 14.4, Plt Count 310, MPV 10.2, Neut % (Auto) 65.8, Lymph % (Auto) 26.1, [place] % (Auto) 5.2, Eos % (Auto) 0.8, Baso % (Auto) 0.6, Neut # (Auto) 10.9 H, Lymph # (Auto) 4.3, [place] # (Auto) 0.9, Eos # (Auto) 0.1, Baso # (Auto) 0.1, Total Counted 100, Neutrophils % (Manual) 70, Lymphocytes % (Manual) 27, Monocytes % (Manual) 2, Eosinophils % (Manual) 1, Platelet Estimate Normal, Anisocytosis 2+, Microcytosis 1+, Macrocytosis 2+, [place] Cells 1+, Schistocytes 1+, Sodium 135 L, Potassium 4.8, Chloride 101, Carbon Dioxide 24, Anion Gap 14.8, BUN 33 H, Creatinine 1.00, Estimated Creat Clear 31, Estimated GFR 55 L, Est GFR ( Amer) 66, Glucose 197 H, Calcium 11.3 H, Phosphorus 5.4 H, Magnesium 1.6, Total Bilirubin 0.9, AST 69 H, ALT 23, Alkaline Phosphatase 263 H, Total Creatine Kinase 81, Troponin I 0.03, Total Protein 6.2 L, Albumin 3.6, Globulin 2.6, Albumin/Globulin Ratio 1.4, Lipase 68, TSH 6.36 H, Thyroxine (T4) 6.7 08/02/24 23:37: VBG pH 7.00 L, VBG pCO2 97.4 H, VBG pO2 93.5 H, VBG HCO3 23.2, VBG Total CO2 26.2, VBG O2 Saturation 92.7 H, VBG Base Excess -8.1 L, VBG Lactic Acid 2.9 H 08/02/24 22:32 08/02/24 22:32 Orders (Tests/Meds): ED MEDICATIONS Generic Name Dose Route Start Last Admin Trade Name Freq PRN Reason Stop Dose Admin Acetaminophen 650 mg 08/03/24 01:36 Acetaminophen 325mg Tab PO 09/02/24 01:35 Q4HP PRN Fever or Mild Pain (1-3) Enoxaparin Sodium 40 mg 08/03/24 01:45 Enoxaparin 100mg/Ml Syringe 1 mg/kg (40 mg) 09/02/24 01:44 SUBCUT Q12H NIKO Levofloxacin/Dextrose 750 mg in 150 mls @ 100 mls/hr 08/02/24 23:45 08/03/24 00:19 Levofloxacin 750mg/150ml Premix IV 08/12/24 23:44 100 mls/hr Q24H NIKO Administration Lactated Ringer's 500 mls @ 999 mls/hr 08/03/24 01:20 08/03/24 01:22 Lactated Ringer's 500ml IV 08/03/24 01:50 999 mls/hr .Q31M ONE Administration Norepinephrine/Dextrose 8 mg in 250 mls @ 15 mls/hr 08/03/24 01:33 08/03/24 01:34 Levophed 8mg/250ml-D5w Premix IV 09/02/24 01:32 4 mcg/min .[id number] NIKO 7.5 mls/hr Administration Protocol 8 MCG/MIN Meropenem 1 gm/ Sodium 100 mls @ 100 mls/hr 08/03/24 01:45 Chloride IV 08/13/24 01:44 Q8H [facility] Miscellaneous 1 each 08/03/24 01:45 Vancomycin Consult Request NOTAPPLIC 09/02/24 01:44 CONSULT PHARMACY [facility] Morphine Sulfate 2 mg 08/03/24 01:36 Morphine 2mg/Ml Syringe IV 09/02/24 01:35 Q2HP PRN Severe Pain (7-10) Ondansetron HCl 4 mg 08/03/24 01:36 Ondansetron 4mg/2ml Vial IV 09/02/24 01:35 Q8HP PRN Nausea Discontinued Medications Generic Name Dose Route Start Last Admin Trade Name Freq PRN Reason Stop Dose Admin Lactated Ringer's 1,000 mls @ 999 mls/hr 08/02/24 23:45 08/03/24 00:16 Lactated Ringer's 1000 Ml Bag IV 08/03/24 00:45 999 mls/hr .Q1H1M NIKO Administration ORDERS Category Date Time Status CXR --portable [XR chest portable] Stat Exams 08/02/24 23:13 Completed CBC w/Auto Diff [Complete Blood Count Auto Diff] Stat Lab 08/02/24 22:32 Completed CK [Creatine Kinase] Stat Lab 08/02/24 22:32 Completed CMP [Comprehensive Metabolic Panel] Stat Lab 08/02/24 22:32 Completed Hep C Ab with Reflex to RNA Stat Lab 08/02/24 23:38 Ordered Lactate Venous Stat Lab 08/02/24 23:36 Ordered Lipase Stat Lab 08/02/24 22:32 Completed MAG [Magnesium] Stat Lab 08/02/24 22:32 Completed PHOS [Phosphorous] Stat Lab 08/02/24 22:32 Completed T4 (Thyroxine) Stat Lab 08/02/24 22:32 Completed TSH [Thyroid Stimulating Hormone] Stat Lab 01/07/25 22:32 Completed Troponin I Q3H Lab 08/02/24 22:32 Completed Troponin I Q3H Lab 08/03/24 02:45 Ordered UA [Urinalysis and Microscopic] Stat Lab 08/02/24 00:10 Completed Blood Culture Stat Micro 08/02/24 00:01 Received VBG [Venous Blood Gas] Stat RT 08/02/24 23:37 Completed Tissue Perfus/Sepsis Re-Eval Sepsis Re-Evaluation Performed: Yes Date Performed: 08/03/24 Time Performed: 01:50 HEART Score History (anamnesis): Slightly suspicious ECG: Non-specific disturbance Age: >65 years Risk factors: 3 or more risk factors Troponin: </= normal limit HEART Score: 5 Medical Decision Narrative: 74-year-old female with history of of lung cancer s/p resection, chemo, no longer receiving treatment since May, on home oxygen as needed presents for presumed aspiration pneumonia. She was drinking an Ensure when she started choking severely. History was obtained via interactive discussion with patient, family, EMS, chart review. On arrival, patient is hypothermic with temp 94, hypotensive, tachycardic, hypoxic satting 80s to low 90s on nonrebreather, generally thin and malnourished appearing, in moderate respiratory distress. I had extensive discussion with family regarding goals of care. We will proceed with laboratory and imaging evaluation and trial BiPAP fluids and antibiotics. Patient is a DNR/DNI. Differential includes but is not limited to aspiration pneumonitis, heart failure, progression of underlying disease Patient was given 1 L IV fluids, IV Levaquin, placed on BiPAP and Gisell hugger for symptomatic management and correction of underlying abnormalities. Workup initiated including CBC CMP VBG UA blood cultures urine urine culture mag Phos chest x-ray EKG troponin. Laboratory workup independently interpreted by me and significant for leukocytosis with white count of 16, mildly elevated BUN, mild hypercalcemia, no significant electrolyte derangement, troponin 0.03, blood gas shows severe respiratory acidosis with pCO2 of 97, pH is 6.9, mild lactic at 2.9.. Imaging independently interpreted by me and significant for complete whiteout of the right lung field consistent with aspiration likely in addition to patient's underlying malignancy and prior resection. See radiology read for full review of final results. EKG independently interpreted by me and significant for sinus tachycardia with rate of 117, significant baseline artifact markedly limits interpretation, no gross ST elevations on limited eval, time 2313. On reassessment patient remains hypoxic despite increasing patient's BiPAP settings, currently on 80% FiO2. Blood pressure also dropping despite additional fluid fluid resuscitation up to 1500 mL. (Consider additional fluid but did not want to cause volume overload given her fragile respiratory status), patient was initiated on Levophed. Given patient history, exam and workup, patient's presentation most likely represents aspiration pneumonitis and acute hypoxic and hypercarbic respiratory failure in the setting of underlying lung malignancy. Interact discussion was had with patient's family regarding presentation and workup and next steps. We considered obtaining a CTA to evaluate for PE and to better assess the lung. However, at this point I do not think she would be able to tolerate lying flat for the CT. We discussed with family what we might find on the CT and whether or not they would want to intervene. They said that they would not want to put patient through any surgery or any painful procedures at this point but wanted continue to support her as much as possible at this time including BiPAP, antibiotics, fluids, pressors etc. Patient was admitted to the hospitalist for further evaluation management. Procedures Risk/Benefits of Procedure(s) Were Explained: Yes Critical Care Critical Care Time Critical Care Time: Yes Attestation: On 08/02/24, the high probability of a clinically significant, sudden or life threatening deterioration of the following system(s) required my full and direct attention, intervention and personal management. The time I documented below is in addition to time spent performing reported procedures but includes the following listed in this critical care notation. Total Time Total Critical Care Time: 40
[2024-08-02 23:49] LABS: Lipase 68 U/L (23-300)
[2024-08-02 23:50] LABS: Albumin Level 3.6 g/dl (3.5-5.0); Chloride 101 mmol/L (98-107)
[2024-08-02 23:51] LABS: Potassium 4.8 mmoL/L (3.5-5.1); Sodium 135 mmol/L (136-145)
[2024-08-02 23:53] LABS: Alanine Aminotransferase 23 U/L (12-78); Albumin/Globulin Ratio 1.4 (1.1-1.8); Alkaline Phosphatase 263 U/L (38-126); Anion Gap 14.8 mEq/L (5-15); Aspartate Amino Transferase 69 U/L (14-36); Bilirubin,Total 0.9 mg/dl (0.2-1.3); Blood Urea Nitrogen 33 mg/dl (7-17); Carbon Dioxide 24 mmol/L (22.0-30.0); Creatine Kinase 81 U/L (30-135); Creatinine Clearance Estimated 31 mL/min (50-200); Estimated Glomerular Filt Rate 55 ml/min (>60); GFR (African American) 66 ML/MIN (>60); Globulin 2.6 g/dL (1.3-3.2); Total Protein,Serum 6.2 g/dl (6.3-8.2)
[2024-08-02 23:54] LABS: Calcium 11.3 mg/dl (8.4-10.2); Glucose 197 mg/dl (74-100); Magnesium 1.6 mg/dl (1.6-2.3); Phosphorous 5.4 mg/dl (2.5-4.5)
[2024-08-02 23:56] LABS: Basophils # 0.1 K/mm3 (0-0.2); Basophils % 0.6 % (0.1-2.0); Eosinophils # 0.1 K/mm3 (0.0-0.4); Eosinophils % 0.8 % (0.1-12.0); Hematocrit 34.5 % (37.0-47.0); Hemoglobin 10.3 g/dL (12.2-16.2); Lymphocytes # 4.3 K/mm3 (0.7-4.5); Lymphocytes % 26.1 % (10-50); Mean Corpuscular HGB Conc 29.9 g/dL (31.8-35.4); Mean Corpuscular Hemoglobin 31.5 pg (27.0-31.2); Mean Corpuscular Volume 105.5 fl (81-99); Mean Platelet Volume 10.2 fl (7.4-10.4); Monocytes # 0.9 K/mm3 (0.1-1.0); Monocytes % 5.2 % (1.7-9.3); Neutrophils # 10.9 K/mm3 (1.8-7.8); Neutrophils % 65.8 % (37.0-80.0); Platelet Count 310 K/mm3 (142-424); Red Blood Count 3.27 M/mm3 (4.20-5.40); Red Cell Distribution Width 14.4 % (11.5-17.5); White Blood Count 16.5 K/mm3 (4.8-10.8)
[2024-08-03] VITALS (39 sets, daily range): BP systolic 60–107; BP diastolic 37–67; PULSE 85–140; RESP 5–35; TEMP 33.2–33.3; O2SAT 90–97; BMI 15.6
[2024-08-03] LABS: MANUAL DIFFERENTIAL MANUAL DIFFERENTIAL (MANUAL DIFF)
[2024-08-03 00:03] LABS: Troponin I 0.03 ng/ml (0.00-0.034)
[2024-08-03 00:10] LABS: T4 (Thyroxine) 6.7 ug/dl (5.53-11.0)
[2024-08-03 00:14] LABS: VBG Base Excess -8.1 mmol/L (-2.4-2.3); VBG HCO3 23.2 mmol/L (23-30); VBG Oxygen Saturation 92.7 % (50-70); VBG PO2 93.5 mmol/L (28-40); VBG Total CO2 26.2 mmol/L (23-27)
--- NOTE | 2024-08-03 00:14 | PC.NURSE ---
pts rectal temp 94.5. Gisell rahuler now in place. Pt placed on bipap per Will RT.
[2024-08-03 00:16] LABS: Microscopic, Urine URINE MICROSCOPIC (MICROSCOPIC)
[2024-08-03] MEDS: LACTATED RINGERS 1000ML 1,000 ML 999 ML IV (00:16)
[2024-08-03] MEDS: LEVOFLOXACIN/D5W 750 MG/150 ML 750 MG/150 ML PIGGYBACK 100 MG IV (00:19)
[2024-08-03 00:20] LABS: Appearance,Urine CLEAR (Clear); Blood, Urine Negative (Negative); Color,Urine YELLOW (Yellow); Glucose,Urine (UA) Negative (Negative); Ketones,Urine Negative (Negative); Leukocyte Esterase,Urine Negative (Negative); Nitrate,Urine Negative (Negative); Protein,Urine TRACE (Negative); Specific Gravity, Urine >= 1.030 (1.005-1.030); Urobilinogen,Urine 0.2 EU/dl (0.2)
[2024-08-03 00:21] LABS: Thyroid Stimulating Hormone 6.36 uIU/mL (0.465-4.68)
[2024-08-03 00:22] LABS: Bilirubin,Urine Negative (Negative)
[2024-08-03 00:30] LABS: Eosinophils % 1 % (0-3); Lymphocytes % 27 % (10-50); Monocytes % 2 % (2-9); Neutrophils % 70 % (42-76); Total Cells Counted 100
[2024-08-03 00:31] LABS: Squamous Epithelial Cell,Urine Occasional #/hpf (0-5)
[2024-08-03 00:34] LABS: Platelet Estimate Normal
[2024-08-03 00:37] LABS: Anisocytosis 2+; Burr Cells 1+; Macrocytosis 2+; Microcytosis 1+; Schistocytes 1+
[2024-08-03 00:50] LABS: Lactate Venous 2.9 mmol/L (0.4-2.0); VBG PCO2 97.4 mmol/L (35-51)
[2024-08-03] MEDS: RINGERS SOLUTION,LACTATED 500 ML 999 ML IV (01:22)
[2024-08-03] MEDS: NOREPINEPHRINE BITARTRATE/D5W 8 MG/250 ML PLAST..BAG 7.5 MG IV (01:34)
--- NOTE | 2024-08-03 01:36 | P.HP_ITS ---
History of Present Illness *Admission Date: 08/03/24 *Reason for visit:: Gurgling after sipping on Ensure at home *History of present illness: Irene Martin is a 74-year-old female with a medical history significant for lung cancer (chemo at [facility] recently discontinued due to minimal improvement) with previous, saddle PE and DVT presented after family was concerned that patient choked on her Ensure earlier today and has been gurgling since. Patient was on BiPAP for hypoxia and hypercapnia and Gisell hugger for hypothermia on my evaluation so all history was obtained via ED physician and family at bedside. states she took a few sips of Ensure earlier today and has been having gurgling noise with breathing since. states she has declined significantly over the past year and had been on chemotherapy for lung cancer at [facility]. However joint decision was made to discontinue chemotherapy in May 2024 given minimal improvement in lung cancer and side effects. Family was made aware that patient unfortunately only has a few months to live in the setting of lung cancer. is cognizant of this and does not want invasive interventions for his at this time. Both me and Dr. Herrera had extensive conversations about hospice care with family, however is not ready to make that decision at this time. Workup in the ED significant for WBC 16.5, VBG pH 7.0, pCO2 97.4. CXR demonstrated essentially whiteout of right lung with likely underlying malignancy, pneumonia, aspirates, pleural effusion. Patient was initially placed on 15 L nonrebreather but required BiPAP for oxygen ideation and hypercapnia. I had extensive convers ation about the findings of CXR with at bedside. I told him a CT chest would need to be obtained for further evaluation to rule out obstructive malignancy/pneumonia which could potentially lead to a transfer to a tertiary facility. reaffirmed that he does not want invasive interventions for his and did not desire a transfer, and would like to have a conversation with the hospice nurse tomorrow. A CT chest was not obtained for this reason in addition to patient's tenuous state on BiPAP. At this time, wants us to medically manage his until decision about hospice is made tomorrow. states she is DNR/DNI. Case discussed with ED provider and decision was made to admit patient for sepsis, hypothermia, likely underlying pneumonia. PFS PFSH Disclaimer: The information contained in this section may have been updated after the patient was seen, as this information can be updated by other users. Medical History (Updated 08/03/24 @ 05:05 by Patrice Beal MD) Pulmonary embolism DVT (deep venous thrombosis) Exposure to second hand smoke Family history of blood clots Family history of lung cancer Dyspnea on exertion Lung cancer Surgical History History of lung surgery Family History Other No significant family history Social History (Updated 06/01/24 @ 11:38 by Fei Monique, ELDA) Smoking Status: Unknown if ever smoked alcohol intake: never current occupational status: unemployed and retired Travel in the last 8 weeks: None Other Medical History Have you received the Pneumonia Vaccine: No Meds Home Medications and Allergies Home Medications ?Medication ?Instructions ?Recorded ?Confirmed ?Type osimertinib 80 mg tablet (Tagrisso) 80 mg PO DAILY chemotherapy 06/08/22 06/01/24 History albuterol sulfate 90 mcg/actuation 2 inh inhalation QID PRN shortness 06/30/22 06/01/24 Rx aerosol inhaler of breath or wheezing 90 days #8.5 grams apixaban 5 mg tablet (Eliquis) 5 mg PO BID 06/30/22 06/01/24 History fluticasone propionate 50 1 spray intranasal DAILY 90 days 06/30/22 06/01/24 Rx mcg/actuation nasal #16 grams spray,suspension (Flonase Allergy Relief) New Prescriptions to Start Prescriptions: Allergies Allergy/AdvReac Type Severity Reaction Status Date / Time Penicillins Allergy Unknown Verified 06/01/24 11:39 allergy reaction Sulfa (Sulfonamide Allergy Unknown Verified 06/01/24 11:39 Antibiotics) allergy reaction Exam Data for Last 24 hours Vital signs and Labs for Last 24 Hours: Temp Pulse Resp BP Pulse Ox O2 Del Method O2 Flow Rate 94.5 F L 87 15 60/37 L 95 Non-Rebreather 15 08/02/24 23:07 08/03/24 01:29 08/03/24 01:29 08/03/24 01:29 08/03/24 01:29 08/02/24 23:07 08/02/24 23:07 FiO2 100 08/02/24 23:07 Laboratory Results - last 24 hr 08/02/24 00:10: Urine Color Yellow, Urine Appearance Clear, Urine pH 6.0, Ur Specific [place] >= 1.030, Urine Protein Trace, Urine Glucose (UA) Negative, Urine Ketones Negative, Urine Blood Negative, Urine Nitrate Negative, Urine Bilirubin Negative, Urine Urobilinogen 0.2, Ur Leukocyte Esterase Negative, Urine RBC None, Urine WBC None, Ur Squamous Epith Cells Occasional, Urine Bacteria None 08/02/24 22:32: WBC 16.5 H, RBC 3.27 L, Hgb 10.3 L, Hct 34.5 L, MCV 105.5 H, MCH 31.5 H, MCHC 29.9 L, RDW 14.4, Plt Count 310, MPV 10.2, Neut % (Auto) 65.8, Lymph % (Auto) 26.1, [place] % (Auto) 5.2, Eos % (Auto) 0.8, Baso % (Auto) 0.6, Neut # (Auto) 10.9 H, Lymph # (Auto) 4.3, [place] # (Auto) 0.9, Eos # (Auto) 0.1, Baso # (Auto) 0.1, Total Counted 100, Neutrophils % (Manual) 70, Lymphocytes % (Manual) 27, Monocytes % (Manual) 2, Eosinophils % (Manual) 1, Platelet Estimate Normal, Anisocytosis 2+, Microcytosis 1+, Macrocytosis 2+, [place] Cells 1+, Schistocytes 1+, Sodium 135 L, Potassium 4.8, Chloride 101, Carbon Dioxide 24, Anion Gap 14.8, BUN 33 H, Creatinine 1.00, Estimated Creat Clear 31, Estimated GFR 55 L, Est GFR ( Amer) 66, Glucose 197 H, Calcium 11.3 H, Phosphorus 5.4 H, Magnesium 1.6, Total Bilirubin 0.9, AST 69 H, ALT 23, Alkaline Phosphatase 263 H, Total Creatine Kinase 81, Troponin I 0.03, Total Protein 6.2 L, Albumin 3.6, Globulin 2.6, Albumin/Globulin Ratio 1.4, Lipase 68, TSH 6.36 H, Thyroxine (T4) 6.7 08/02/24 23:37: VBG pH 7.00 L, VBG pCO2 97.4 H, VBG pO2 93.5 H, VBG HCO3 23.2, VBG Total CO2 26.2, VBG O2 Saturation 92.7 H, VBG Base Excess -8.1 L, VBG Lactic Acid 2.9 H I & O for Last 24 hours: Intake & Output 07/31/24 08/01/24 08/02/24 08/03/24 23:59 23:59 23:59 23:59 Weight 38.555 kg Constitutional Comments: On BiPAP, Gisell hugger. *Routine HEENT Exam Head: Present normocephalic Eye: Present EOMI and PERRL ENT: Present mucous membranes moist *Routine Neck Exam Neck: Present supple; Absent lymphadenopathy *Routine Respiratory Exam Respiratory: Present CTA bilaterally *Routine Cardiovascular Exam Cardiovascular: Present RRR *Routine Abdominal Exam Abdominal: Present soft and normoactive bowel sounds; Absent tenderness *Routine Rectal Exam Rectal:: deferred *Routine Genitalia Exam Genitalia:: deferred *Routine Extremities Exam Extremities: Absent cyanosis, clubbing or edema *Routine Skin Exam Skin: Present warm; Absent rash Assessment and Plan *Assessment and plan (1) Respiratory failure: Status: Acute Qualifiers: Chronicity: acute on chronic Respiratory failure complication: hypoxia and hypercapnia Qualified Code(s): J96.21 - Acute and chronic respiratory failure with hypoxia; J96.22 - Acute and chronic respiratory failure with hypercapnia Category: Medical Code(s): J96.90 - Respiratory failure, unspecified, unspecified whether with hypoxia or hypercapnia (2) Pulmonary embolism: Status: Acute Category: Medical Code(s): I26.99 - Other pulmonary embolism without acute cor pulmonale (3) DVT (deep venous thrombosis): Status: Acute Category: Medical Code(s): I82.409 - Acute embolism and thrombosis of unspecified deep veins of unspecified lower extremity (4) ARDS (adult respiratory distress syndrome): Status: Acute Category: Medical Code(s): J80 - Acute respiratory distress syndrome (5) Lung cancer: Status: Acute Category: Medical Code(s): C34.90 - Malignant neoplasm of unspecified part of unspecified bronchus or lung (6) Hypercapnic respiratory failure: Status: Acute Category: Medical Code(s): J96.92 - Respiratory failure, unspecified with hypercapnia Plan Irene Martin is a 74-year-old female with a medical history significant for lung cancer (chemo at [facility] recently discontinued due to minimal improvement) with previous, saddle PE and DVT presented after family was concerned that patient choked on her Ensure earlier today and has been gurgling since. Patient was on BiPAP for hypoxia and hypercapnia and Gisell hugger for hypothermia on my evaluation so all history was obtained via ED physician and family at bedside. states she took a few sips of Ensure earlier today and has been having gurgling noise with breathing since. states she has declined significantly over the past year and had been on chemotherapy for lung cancer at [facility]. However joint decision was made to discontinue chemotherapy in May 2024 given minimal improvement in lung cancer and side effects. Family was made aware that patient unfortunately only has a few months to live in the setting of lung cancer. is cognizant of this and does not want invasive interventions for his at this time. Both me and Dr. Herrera had extensive conversations about hospice care with family, however is not ready to make that decision at this time. Workup in the ED significant for WBC 16.5, VBG pH 7.0, pCO2 97.4. CXR demonstrated essentially whiteout of right lung with likely underlying malignancy, pneumonia, aspirates, pleural effusion. Patient was initially placed on 15 L nonrebreather but required BiPAP for oxygen ideation and hypercapnia. I had extensive conversat ion about the findings of CXR with at bedside. I told him a CT chest would need to be obtained for further evaluation to rule out obstructive malignancy/pneumonia which could potentially lead to a transfer to a tertiary facility. reaffirmed that he does not want invasive interventions for his and did not desire a transfer, and would like to have a conversation with the hospice nurse tomorrow. A CT chest was not obtained for this reason in addition to patient's tenuous state on BiPAP. At this time, wants us to medically manage his until decision about hospice is made tomorrow. states she is DNR/DNI. Case discussed with ED provider and decision was made to admit patient for sepsis, hypothermia, likely underlying pneumonia. #End-stage lung cancer #Severe sepsis #Suspected community-acquired and aspiration pneumonia #Suspected ARDS #Acute hypoxic and hypercapnic respiratory failure ? Chemotherapy was recently discontinued due to minimal response and side effects. Patient was told that she would have 4 months to live. Family is accepting of this. ? wishes to speak to hospice nurse tomorrow, desires medical management of conditions but no invasive interventions. For this reason, CT scan was not obtained to evaluate for obstructive pneumonia/malignancy, pleural effusion, etc. ? CXR shows essentially a right lung whiteout with underlying malignancy, and likely ARDS, pneumonia, pleural effusion, aspirates. ? Initial WBC 16.5. VBG revealing acute hypercapnia pH 7.0, pCO2 97.4. Repeat ABG showed worsening hypercapnia likely indicating spacing from possible obstructive malignancy/pneumonia. ? BiPAP respiratory rate increased from 20 to 24, IPAP reduced from 20 to 16 to prevent lung injury in the setting of ARDS, PEEP 8. ? Started vancomycin, cefepime, Flagyl day 1. Allergic to Zosyn. ? Started Levophed to maintain MAP >65. ? Continue Gisell hugger, current body temp 91.8. ? Family will consider hospice care as below. ? Pulmonology consulted, pending further recommendations. #History of saddle PE, DVT ? Started therapeutic Lovenox. #Failure to thrive #End-stage lung cancer ? states patient has physically and cognitively deteriorated over the past few months. He states he is very concerned about her quality of life. ? and family are interested in hospice discussions, however not ready to make that decision yet. Will appreciate case management's assistance in this. ? Patient will likely meet inpatient hospice criteria given critical state and high probability of further decompensation. CODE STATUS: DNR/DNI DVT prophylaxis: Therapeutic Lovenox as above
--- NOTE | 2024-08-03 01:55 | PC.NURSE ---
report called to Lynn Barrientos RN
[2024-08-03 02:21] LABS: NT Pro Brain Natriuretic Pep. 860 pg/mL (0-125)
[2024-08-03 02:28] LABS: Free T4 (Free Thyroxine) 1.06 ng/dl (0.78-2.19); Procalcitonin 0.248 ng/mL (0.0-2.0)
[2024-08-03 02:52] LABS: Reflex Lactic Add Lactic Reflex
[2024-08-03 03:10] LABS: Lactic Acid Follow Up (RFLX 1) 2.8 mmol/L (0.7-2.1)
[2024-08-03 03:19] LABS: Troponin I 0.03 ng/ml (0.00-0.034)
[2024-08-03 04:07] LABS: ABG Base Excess -11.3 mmol/L (-2.4-2.3); ABG HCO3 22.5 mmhg (22.0-26.0); ABG Oxygen Saturation 92 % (90-100); ABG PO2 99.9 mmhg (80-100); ABG TCO2 26.6 mmhg (23-27); Allen's Test Non Applicable; Oxygen 100 %; Source Left Radial; Tidal Volume 17/8; Vent Rate 20
[2024-08-03 04:08] LABS: ABG PCO2 133.4 mmhg (35.0-45.0); ABG PH 6.85 mmol/L (7.35-7.45)
[2024-08-03] MEDS: CEFEPIME HCL 2 GM in 0.9 % SODIUM CHLORIDE 100 ML IV (04:30)
[2024-08-03] MEDS: ENOXAPARIN 100MG/ML SYRINGE 40 MG SUBCUT (04:32)
[2024-08-03] MEDS: VANCOMYCIN CONSULT REQUEST 1 EACH NOTAPPLIC (04:34)
[2024-08-03] MEDS: VANCOMYCIN HCL 750 MG in 0.9 % SODIUM CHLORIDE 250 ML 125 MG IV (04:48)
[2024-08-03 04:55] LABS: Reflex Lactic (2 hrs) Add Lactic Reflex
--- NOTE | 2024-08-03 05:47 | ECG_ITS ---
APPROVED REPORT Exam: Resting ECG HR:124 bpm ECG Measurements Heart Rate 124 AXES ME 184 P 56 QRSd 81 QRS -74 QT 310 T 65 QTc 383 Conclusion SINUS TACHYCARDIA LOW QRS VOLTAGE IN EXTREMITY LEADS [QRS DEFLECTION < 0.5 mV IN LIMB LEADS] INFERIOR MYOCARDIAL INFARCTION , PROBABLY OLD [40+ ms Q WAVE AND/OR ST/T ABNORMALITY IN II/aVF] ANTEROLATERAL MYOCARDIAL INFARCTION , OF INDETERMINATE AGE [40+ ms Q WAVE IN I/aVL/V3-V6] ABNORMAL ECG UNCONFIRMED REPORT Electronically signed by : Abdiaziz Diana MD 08/06/2024 08:32:28
[2024-08-03 05:59] LABS: VBG Base Excess -8.4 mmol/L (-2.4-2.3); VBG HCO3 20.6 mmol/L (23-30); VBG PO2 159.4 mmol/L (28-40); VBG Total CO2 22.5 mmol/L (23-27)
[2024-08-03 06:04] LABS: Lactate Venous 2.9 mmol/L (0.4-2.0); VBG PCO2 62.1 mmol/L (35-51); VBG PH 7.14 mmol/L (7.31-7.41)
[2024-08-03 06:06] LABS: Basophils % 0.4 % (0.1-2.0); Hemoglobin 9.7 g/dL (12.2-16.2); Lymphocytes # 0.5 K/mm3 (0.7-4.5); Lymphocytes % 9.2 % (10-50); Mean Corpuscular HGB Conc 29.4 g/dL (31.8-35.4); Mean Corpuscular Hemoglobin 31.6 pg (27.0-31.2); Mean Corpuscular Volume 107.5 fl (81-99); Mean Platelet Volume 9.5 fl (7.4-10.4); Monocytes # 0.2 K/mm3 (0.1-1.0); Monocytes % 4.3 % (1.7-9.3); Neutrophils # 4.8 K/mm3 (1.8-7.8); Platelet Count 257 K/mm3 (142-424); Red Blood Count 3.07 M/mm3 (4.20-5.40); Red Cell Distribution Width 14.1 % (11.5-17.5); White Blood Count 5.6 K/mm3 (4.8-10.8)
[2024-08-03 06:17] LABS: Alanine Aminotransferase 34 U/L (12-78); Albumin Level 2.9 g/dl (3.5-5.0); Albumin/Globulin Ratio 1.3 (1.1-1.8); Alkaline Phosphatase 208 U/L (38-126); Anion Gap 8.5 mEq/L (5-15); Aspartate Amino Transferase 118 U/L (14-36); Bilirubin,Total 0.4 mg/dl (0.2-1.3); Blood Urea Nitrogen 32 mg/dl (7-17); Calcium 10.6 mg/dl (8.4-10.2); Carbon Dioxide 26 mmol/L (22.0-30.0); Chloride 103 mmol/L (98-107); Creatinine Clearance Estimated 24 mL/min (50-200); Estimated Glomerular Filt Rate 40 ml/min (>60); GFR (African American) 49 ML/MIN (>60); Globulin 2.3 g/dL (1.3-3.2); Glucose 130 mg/dl (74-100); Magnesium 1.5 mg/dl (1.6-2.3); Potassium 4.5 mmoL/L (3.5-5.1); Sodium 133 mmol/L (136-145); Total Protein,Serum 5.2 g/dl (6.3-8.2)
[2024-08-03 06:22] LABS: Lactic Acid Follow up (RFLX 2) 2.1 mmol/L (0.7-2.1)
[2024-08-03] MEDS: METRONIDAZ/SOD CHL 500 MG/100 ML PIGGYBACK 100 MG IV (07:05)
--- NOTE | 2024-08-03 07:27 | P.CONPHA_ITS ---
Pharmacy Consult Date: 08/03/24 Time: 07:27 Referring provider: DR. PAINTING Reason for Consult:: VANCOMYCIN DOSING Allergies Allergy/AdvReac Type Severity Reaction Status Date / Time Penicillins Allergy Unknown Verified 06/01/24 11:39 allergy reaction Sulfa (Sulfonamide Allergy Unknown Verified 06/01/24 11:39 Antibiotics) allergy reaction Home Medications ?Medication ?Instructions ?Recorded ?Confirmed ?Type osimertinib 80 mg tablet (Tagrisso) 80 mg PO DAILY chemotherapy 06/08/22 06/01/24 History albuterol sulfate 90 mcg/actuation 2 inh inhalation QID PRN shortness 06/30/22 06/01/24 Rx aerosol inhaler of breath or wheezing 90 days #8.5 grams apixaban 5 mg tablet (Eliquis) 5 mg PO BID 06/30/22 06/01/24 History fluticasone propionate 50 1 spray intranasal DAILY 90 days 06/30/22 06/01/24 Rx mcg/actuation nasal #16 grams spray,suspension (Flonase Allergy Relief) New Prescriptions to Start Prescriptions: Height: 1.57 m Weight: 38.555 kg Laboratory Results:: Laboratory Results - last 24 hr 08/02/24 00:10: Urine Color Yellow, Urine Appearance Clear, Urine pH 6.0, Ur Specific [place] >= 1.030, Urine Protein Trace, Urine Glucose (UA) Negative, Urine Ketones Negative, Urine Blood Negative, Urine Nitrate Negative, Urine Bilirubin Negative, Urine Urobilinogen 0.2, Ur Leukocyte Esterase Negative, Urine RBC None, Urine WBC None, Ur Squamous Epith Cells Occasional, Urine Bacteria None 08/02/24 22:32: WBC 16.5 H, RBC 3.27 L, Hgb 10.3 L, Hct 34.5 L, MCV 105.5 H, MCH 31.5 H, MCHC 29.9 L, RDW 14.4, Plt Count 310, MPV 10.2, Neut % (Auto) 65.8, Lymph % (Auto) 26.1, [place] % (Auto) 5.2, Eos % (Auto) 0.8, Baso % (Auto) 0.6, Neut # (Auto) 10.9 H, Lymph # (Auto) 4.3, [place] # (Auto) 0.9, Eos # (Auto) 0.1, Baso # (Auto) 0.1, Total Counted 100, Neutrophils % (Manual) 70, Lymphocytes % (Manual) 27, Monocytes % (Manual) 2, Eosinophils % (Manual) 1, Platelet Estimate Normal, Anisocytosis 2+, Microcytosis 1+, Macrocytosis 2+, [place] Cells 1+, Schistocytes 1+, Sodium 135 L, Potassium 4.8, Chloride 101, Carbon Dioxide 24, Anion Gap 14.8, BUN 33 H, Creatinine 1.00, Estimated Creat Clear 31, Estimated GFR 55 L, Est GFR ( Amer) 66, Glucose 197 H, Calcium 11.3 H, Phosphorus 5.4 H, Magnesium 1.6, Total Bilirubin 0.9, AST 69 H, ALT 23, Alkaline Phosphatase 263 H, Total Creatine Kinase 81, Troponin I 0.03, Total Protein 6.2 L, Albumin 3.6, Globulin 2.6, Albumin/Globulin Ratio 1.4, Lipase 68, TSH 6.36 H, Thyroxine (T4) 6.7 08/02/24 23:37: VBG pH 7.00 L, VBG pCO2 97.4 H, VBG pO2 93.5 H, VBG HCO3 23.2, VBG Total CO2 26.2, VBG O2 Saturation 92.7 H, VBG Base Excess -8.1 L, VBG Lactic Acid 2.9 H 08/03/24 00:00: NT-Pro-B Natriuret Pep 860 H, Procalcitonin 0.248, Free T4 1.06 08/03/24 02:45: Specimen Source Left radial, O2 % 100, ABG pH 6.85 L*, ABG pCO2 133.4 H, ABG pO2 99.9, ABG HCO3 22.5, ABG Total CO2 26.6, ABG O2 Saturation 92, ABG Base Excess -11.3 L, Denis Test Non applicable, Vent Rate 20, Tidal Volume 17/8, Lactate 2.8 H, Troponin I 0.03 08/03/24 05:44: WBC 5.6 D, RBC 3.07 L, Hgb 9.7 L, Hct 33.0 L, MCV 107.5 H, MCH 31.6 H, MCHC 29.4 L, RDW 14.1, Plt Count 257, MPV 9.5, Neut % (Auto) 85.0 H, Lymph % (Auto) 9.2 L, [place] % (Auto) 4.3, Eos % (Auto) 0.0 L, Baso % (Auto) 0.4, Neut # (Auto) 4.8, Lymph # (Auto) 0.5 L, [place] # (Auto) 0.2, Eos # (Auto) 0.0, Baso # (Auto) 0.0, VBG pH 7.14 L, VBG pCO2 62.1 H, VBG pO2 159.4 H, VBG HCO3 20.6 L, VBG Total CO2 22.5 L, VBG O2 Saturation 99.0 H, VBG Base Excess -8.4 L, VBG Lactic Acid 2.9 H, Sodium 133 L, Potassium 4.5, Chloride 103, Carbon Dioxide 26, Anion Gap 8.5, BUN 32 H, Creatinine 1.30 H D, Estimated Creat Clear 24, Estimated GFR 40 L, Est GFR ( Amer) 49 L D, Glucose 130 H D, Lactate 2.1, Calcium 10.6 H, Magnesium 1.5 L, Total Bilirubin 0.4, AST 118 H D, ALT 34 D, Alkaline Phosphatase 208 H, Total Protein 5.2 L, Albumin 2.9 L D, Globulin 2.3, Albumin/Globulin Ratio 1.3 Medical History: Medical History (Updated 08/03/24 @ 05:05 by Patrice Painting MD) Pulmonary embolism DVT (deep venous thrombosis) Exposure to second hand smoke Family history of blood clots Family history of lung cancer Dyspnea on exertion Lung cancer Assessment and Plan Assessment and plan all Dx Assessment and Plan for all problems:: Pharmacokinetic dosing service Objective: Patient: Floor: Age: 74 yo Serum creatinine: 1.30 mg/dL Height: 62.0 Inches Weight (kg): 38.6 Assessment: IBW (kg): 50.10 Dosing wt(kg): 38.6 Estimated Creatinine clearance (ml/min): 23.8 CRCL method: Cockcroft and Gault using ibw(default). Drug selected: Vancomycin Loading dose (mg): Vd (liters): 27.0 (factor used: 0.7 L/kg) Arnulfo (hr-1): 0.024 Half life (hrs): 28.88 CLvanco=?? 0.648 L/hr Recommended dose: 500 mg Interval: 36 hrs Infusion time (hrs): 2.0 Predicted peak (mcg/mL): 31.3 Predicted trough (mcg/mL): 13.84 Total body weight is being used for vancomycin dosing. Recommendations: Give Vancomycin 500 mg q 36 hrs with an expected Cpeak of 31.3 mcg/ml and an expected Ctrough of 13.84 mcg/ml AUC 0-24 /RICARDO Data: RICARDO 0.5 mcg/mL:?? AUC/RICARDO:? 1028.8 RICARDO 1.0 mcg/mL:?? AUC/RICARDO:? 514.4 --------- RICARDO 1.5 mcg/mL:?? AUC/RICARDO:? 342.9 RICARDO 2.0 mcg/mL:?? AUC/RICARDO:? 257.2 Thank you for the consult, will continue to follow. -ALEX COKER, AMANUELD
--- NOTE | 2024-08-03 07:55 | HMH.PHAINT1 ---
Pharmacy Intervention Comments: MEDICATION RECONCILIATION COMPLETED ON PATIENT USING EXTERNAL FILL HISTORY FROM PHARMACY. -ALEX COKER, AMANUELD
[2024-08-03] MEDS: IPRATROPIUM BROMIDE 0.5 MG/2.5ML SOLUTION IH (08:10)
[2024-08-03] MEDS: LEVALBUTEROL 1.25MG/3ML NEB 1.25 MG IH (08:10)
--- NOTE | 2024-08-03 09:30 | EXP.EVENT.NO ---
Advance care planning note: Active diagnosis: The patient's active diagnoses are of sufficient risk that focused discussion on advanced care planning is indicated in order to allow the patient to thoughtfully consider personal goals of care; and, if situations arise that prevent the ability to personally give input, to ensure appropriate representation of their personal desires through documentation or informed surrogate decision makers. Discussion: Persons present and participating in discussion: Discussion: Time spent: Total time spent [id number] in education and discussion directly related to advance care planning: (specific minutes 15-30 or >45) sign, date, time
--- NOTE | 2024-08-03 10:30 | PC.NURSE ---
Dr. Landrum at bedside with case management to speak to the family about plan of care. Family reports the want her to be on comfort measures and stop all supportive care.
--- NOTE | 2024-08-03 11:30 | PC.NURSE ---
pt son approached me and stated they were ready for the patient to be taken off support at this time. Dr. Landrum notified and placed orders for NC O2 and comfort medications to administer.
[2024-08-03] MEDS: LORazepam 2MG/ML VIAL 0.5 MG IV ×2 (11:45→13:38)
[2024-08-03] MEDS: MORPHINE 2MG/ML SYRINGE 2 MG IV ×2 (11:45→13:39)
[2024-08-03] MEDS: GLYCOPYRROLATE 0.2 MG/ML 1ML VIAL IV (11:49)
--- NOTE | 2024-08-03 13:50 | PC.NURSE ---
Dr. Landrum pronounced TOD at [id number]
--- NOTE | 2024-08-03 13:50 | PC.NURSE ---
pt assessed to not be breathing and to have no heartbeat per auscultation. Notified Dr. Landrum to come to bedside
--- NOTE | 2024-08-03 14:07 | P.DN_ITS ---
Pronouncement Note Date and Time of Date of : 08/03/24 Time of : 13:49 PCOD Preliminary cause of : Respiratory arrest Contributing Factors (1) Respiratory failure: (2) Pulmonary embolism: (3) DVT (deep venous thrombosis): (4) ARDS (adult respiratory distress syndrome): (5) Lung cancer: (6) Hypercapnic respiratory failure: Summary Additional details: Irene Martin is a 74-year-old female with a medical history significant for lung cancer (chemo at [facility] recently discontinued due to minimal improvement) with previous, saddle PE and DVT presented after family was concerned that patient choked on her Ensure earlier today and has been gurgling since. Patient was on BiPAP for hypoxia and hypercapnia and Gisell hugger for hypothermia on my evaluation so all history was obtained via ED physician and family at bedside. states she took a few sips of Ensure earlier today and has been having gurgling noise with breathing since. states she has declined significantly over the past year and had been on chemotherapy for lung cancer at [facility]. However joint decision was made to discontinue chemo therapy in May 2024 given minimal improvement in lung cancer and side effects. Family was made aware that patient unfortunately only has a few months to live in the setting of lung cancer. is cognizant of this and does not want invasive interventions for his at this time. Both me and Dr. Herrera had extensive conversations about hospice care with family, however is not ready to make that decision at this time. Workup in the ED significant for WBC 16.5, VBG pH 7.0, pCO2 97.4. CXR demonstrated essentially whiteout of right lung with likely underlying malignancy, pneumonia, aspirates, pleural effusion. Patient was initially placed on 15 L nonrebreather but required BiPAP for oxygen ideation and hypercapnia. I had extensive conversation about the findings of CXR with at bedside. I told him a CT chest would need to be obtained for further evaluation to rule out obstructive malignancy/pneumonia which could potentially lead to a transfer to a tertiary facility. reaffirmed that he does not want invasive interventions for his and did not desire a transfer, and would like to have a conversation with the hospice nurse tomorrow. A CT chest was not obtained for this reason in addition to patient's tenuous state on BiPAP. Discussion had with family, showed some improvement in her blood gas but patient never became responsive. Goals of care discussion with decision to transition to comfort measures. At this time, any treatment is futile given patient's severe respiratory failure, respiratory acidosis, obtundation, sepsis, end-stage lung cancer no longer amenable to treatment. Transitioned to comfort care. De-escalated vasopressors and BiPAP. Patient kept comfortable with morphine and Ativan. Surrounded by family and passed peacefully within a few hours of de-escalation of care. Problems addressed as follows: #End-stage lung cancer #Severe sepsis #Suspected community-acquired and aspiration pneumonia #Suspected ARDS #Acute hypoxic and hypercapnic respiratory failure ? Chemotherapy was recently discontinued due to minimal response and side effects. Patient was told that she would have 4 months to live. Family is accepting of this. Goals of care discussion had with family/ at admission, interested in comfort care. Treated with BiPAP overnight and initiated on antibiotics. Blood gas showed slight improvement with pH but patient had no meaningful recovery or improvement in interaction with family at bedside. Further goals of care discussion, did not want to pursue aggressive measures or keep patient on life support as this is not what she would want . Decision made to de-escalate care and discontinue BiPAP and norepinephrine. Patient kept comfortable with morphine and Ativan available every 2 hours. Stopped breathing at 1:49 PM. Patient passed peacefully surrounded by family. #History of saddle PE, DVT ? Started therapeutic Lovenox. #Failure to thrive #End-stage lung cancer ? states patient has physically and cognitively deteriorated over the past few months. He states he is very concerned about her quality of life. and family are interested in hospice discussions, however not ready to make that decision yet at time of admission. Further discussions during the day, patient comfortable transitioning to hospice style care/comfort care. CODE STATUS: DNR/DNI Additional Data Confirmation of : no pulse, no respirations, no heart sounds and pupils fixed and dilated Family: at bedside Attending/PCP notified?: Yes Attending physician: Patrice Beal MD Was code activated?: No Autopsy should be considered if:: Unknown or unanticipated medical complications Cause is not known with certainty on clinical grounds Would allay concerns of the public/family regarding Unexplained/unexpected apparently natural and not subject to a forensic medical jurisdiction DOA Within 24 hours of admission Sustained or apparently sustained injury while in the hospital Result of high risk, infectious and contagious disease Obstetric and pediatric arising from environmental or occupational hazard Unexplained/unexpected from dental, medical, or surgical diagnostic procedures and/or therapies Would disclose a known or suspected illness which also may have a bearing on survivors or recipients of transplanted organs Autopsy requested?: No Inappropriate situation legal instruments examiner notified?: Yes Organ bank notified?: Yes Advance directives: No
--- NOTE | 2024-08-03 14:12 | PC.NURSE ---
Aurora Whitten at bedside.
--- NOTE | 2024-08-03 14:25 | PC.NURSE ---
pt was released from [facility] at this time by Katelynn Haile. Case #[id number]
== END 2024-08-03 15:45 | disposition expired | DRG 189 ==
LOC: ER 23:13 → ICU 08-03 01:34 → 2ND 08-03 07:52 → ICU 08-03 07:52
PROVIDERS: Admitting Provider Student in an Organized Health Care Education/Training Program; Emergency Provider Emergency Medicine; Visit Provider Student in an Organized Health Care Education/Training Program
DX: J96.21 Acute and chronic respiratory failure with hypoxia (principal); E43 Unspecified severe protein-calorie malnutrition; A41.9 Sepsis, unspecified organism; J69.0 Pneumonitis due to inhalation of food and vomit; C34.90 Malignant neoplasm of unspecified part of unspecified bronchus or lung; Z68.1 Body mass index [BMI] 19.9 or less, adult; J96.22 Acute and chronic respiratory failure with hypercapnia; R68.0 Hypothermia, not associated with low environmental temperature; E88.A Wasting disease (syndrome) due to underlying condition; R00.0 Tachycardia, unspecified; R62.7 Adult failure to thrive; Z79.899 Other long term (current) drug therapy; Z79.69 Long term (current) use of other immunomodulators and immunosuppressants; Z79.01 Long term (current) use of anticoagulants; Z86.711 Personal history of pulmonary embolism; Z86.718 Personal history of other venous thrombosis and embolism
CPT/HCPCS: 36415; 71045; 80053; 81001; 82550; 82803; 83605; 83690; 83735; 83880; 84100; 84145; 84436; 84439; 84443; 84484; 85007; 85025; 87040; 93005; 94640; 94660; 99291; J1595; J1650; J1956; J2060; J2270; J3370; J7120; J7614; J7644